=== PATIENT | female | born 1935 | race Caucasian/White ===

== ENCOUNTER → 2016-11-06 | Outpatient (CLI) | payer MEDICARE ==
--- NOTE | 2016-11-06 16:37 | PE ---
Nuclear medicine PET/CT HISTORY: lung carcinoma Patient received 13.7 mCi F-18 FDG intravenously and delayed scanning was performed from the skull ba se to the mid thighs. Localization and attenuation correction CT scan was performed, correlation to p rior chest CT June, prior nuclear medicine PET/CT 02 August 2015 Neck and chest: The spiculated mass seen in the right lower lobe on previous exam is not evident, the re is soft tissue attenuation present in the right lower lobe which measures approximately 6.2 x 3.5 cm similar to findings on chest CT, this may obscure the underlying lesion seen on prior medicine PET /CT however significant hypermetabolic uptake seen on previous exam has diminished. There is a subcentimeter nodule present on axial image 92 measuring only 6 mm in the right upper lobe anteriorly at. This is a new finding. Osseous structures: There is however a focus of hypermetabolic uptake corresponding to a lytic lesion involving the posterior elements of the 11th thoracic vertebral body, the lytic lesion measures 2 cm in greatest dimension and shows associated soft tissue component and has progressed compared to prio r chest CT as described on prior report. Multiple anterior rib fractures are noted on the right with corresponding hypermetabolic uptake present. Some lower anterior rib fractures are also present on th e left with associated hypermetabolic uptake. Abdomen pelvis: No suspicious hypermetabolic uptake. Infrarenal abdominal aortic aneurysm measures 4 cm. No adrenal mass. No retroperitoneal adenopathy. IMPRESSION: Findings compatible with metastatic disease.
== END | disposition home or self-care (01) ==
LOC: RADPETMAIN 10:40
PROVIDERS: ATTEND Radiology Radiation Oncology
DX: C34.31 Malignant neoplasm of lower lobe, right bronchus or lung (principal)
CPT/HCPCS: 78815; A9552

== ENCOUNTER 2017-08-03 13:43 | Day surgery (SDC) | payer MEDICARE ==
[2017-08-01 15:00] VITALS: BMI 34.3
[~2017-08-03 13:43] MED LIST: HYDROmorphone 0.5 MG/0.5 ML SYRINGE IVP PRN; ONDANSETRON 4 MG/2 ML VIAL IVP ONE; ceFAZolin IN SWFI 2 GM/20 ML SYRINGE IVP ONE
[2017-08-03] MEDS: LACTATED RINGERS 1,000 ML IV SCH ×2 (14:20→18:46)
[2017-08-03] MEDS ORDERED: LIDOCAINE 1% 20 ML VIAL (10MG/ML) FOR IV START INTRADERMA ONE (14:21)
[2017-08-03 14:22] LABS: Glucose,Whole Blood 113 mg/dL (75-99)
[2017-08-03] MEDS ORDERED: HYDROCORTISONE SUCCINATE 100 MG/2 ML VIAL IV ONE (15:39)
[2017-08-03] MEDS ORDERED: ONDANSETRON 4 MG/2 ML VIAL IVP PRN (15:58)
[2017-08-03] MEDS ORDERED: diphenhydrAMINE 25 MG CAP PO PRN (15:58)
[2017-08-03] MEDS ORDERED: hydrOXYzine PAMOATE 25 MG CAP PO PRN (15:58)
[2017-08-03] MEDS ORDERED: HYDROmorphone 2 MG/ML 1 ML SYRINGE IVP PRN ×3 (15:58)
[2017-08-03] MEDS ORDERED: HYDROcodone/APAP 5-325MG 1 EACH TAB PO PRN ×2 (15:58)
[2017-08-03] MEDS ORDERED: SENNOSIDES-DOCUSATE SODIUM 1 EACH TAB PO PRN (15:58)
[2017-08-03] MEDS ORDERED: TEMAZEPAM 15 MG CAP PO PRN (15:58)
[2017-08-03] MEDS ORDERED: METOCLOPRAMIDE 5 MG/ML 2 ML VIAL IVP PRN (15:58)
[2017-08-03] MEDS ORDERED: PROCHLORPERAZINE SUPPOSITORY 25 MG SUPP RECTAL PRN (15:58)
[2017-08-03] MEDS ORDERED: ceFAZolin IN SWFI 2 GM/20 ML SYRINGE IVP SCH (16:00)
[2017-08-03] MEDS ORDERED: MIDAZOLAM 2 MG/2 ML VIAL ONE (16:18)
[2017-08-03] MEDS ORDERED: fentaNYL (PF) 50 MCG/ML 2 ML AMP ONE (16:18)
[2017-08-03] MEDS ORDERED: SILVER sulfADIAZINE Cream 400 GM 1 APPLIC APPLIC TOPICAL ONE (16:55)
--- NOTE | 2017-08-03 17:33 | P.OP ---
Date of Procedure: 08/03/17 Preoperative Diagnosis: 1. Trimalleolar ankle fracture 2. Type 2 diabetes 3. COPD 4. Former smoker 5. Coronary artery disease Postoperative Diagnosis: Same and superficial wound breakdown and ulceration over the lateral malleolus Procedure(s) Performed: 1. Closed reduction left trimalleolar ankle fracture 2. Application of short leg splint by physician Anesthesia: spinal Surgeon: Otto Lamas Occupational Medicine Specialist #1: Fabio Latif Pathology: none sent Condition: stable Disposition: PACU Indications for Procedure: The patient is an 81-year-old female with multiple medical problems who sustained a fall resulting in a left trimalleolar ankle fracture. The patient was initially seen in the hospital as a consultation. She had a splint applied to the right ankle. She was seen in the office last week for soft tissue inspection. At that time there was no wound breakdown, there was wrinkling of the skin and the soft tissue envelope appeared amenable to surgery. The potential risks and complications of surgery and the patient and her family decided to go forward with open reduction and internal fixation of her ankle fracture. Operative Findings: After the patient had been brought back to the operating room and a spinal anesthetic was placed the splint was taken down. There was a superficial wound directly over the lateral malleolus with superficial necrosis, swelling, and maceration of the surrounding skin. His and tenuous soft tissue envelope I canceled the procedure due to the significantly increased risk of wound complications. Description of Procedure: She was identified in preoperative holding and the correct right ankle was marked with my initials. I reviewed the consent form with the patient and her family. All of their questions were answered. The patient was then brought back to the operating room. She was positioned on the OR table and a spinal anesthetic was administered. After the spinal anesthetic and taken effect the short leg splint on her right ankle was taken down. On inspection of the skin there is diffuse swelling, maceration, and ulceration over the lateral malleolus. The soft tissue envelope was not appropriate for surgery. The surgical procedure was canceled. A sterile dressing consisting of Silvadene cream and Adaptic was placed over the wound. A closed reduction was performed using the Samuel maneuver. Reduction of the ankle was verified with fluoroscopy. A padded bulky Conway splint was placed with a varus mold. After the splint had set I verified that the talus was still reduced within the ankle mortise. The patient was then brought from the operating room to PACU having tolerated the procedure well. Plan: Unfortunately the patient already had a spinal anesthetic administered before the soft tissue envelope was deemed unsafe for surgery. She is going to be admitted overnight. She will [facility]. She will follow up with me in the office in one week for wound check. I do lengthy discussion with the patient's family about her tenuous soft tissue envelope. Due to her multiple medical problems and poor soft tissue envelope I recommended proceeding with a TTC fusion nail to address her unstable ankle fracture once her soft tissue envelope is improved. The patient's family understands her increased risk for developing wound complication, infection, and ultimately the possibility of an amputation due to the severity of her fracture and her multiple medical problems.
[2017-08-03 17:37] LABS: Glucose,Whole Blood 141 mg/dL (75-99)
[2017-08-03] MEDS ORDERED: hydrALAZINE HCL 20 MG/ML 1 ML VIAL IVP PRN (18:44)
[2017-08-03] MEDS ORDERED: NALOXONE 0.4 MG/ML 1 ML VIAL IV PRN (19:09)
[2017-08-03 19:31] LABS: Basophils % (A) 0 %; Eosinophils # (A) 0.1 k/uL (0-0.7); Eosinophils % (A) 2 %; HCT 35.4 % (34.0-46.0); HGB 11.4 gm/dL (11.4-16.0); Hypochromasia Slight; Lymphocytes # (A) 1.2 k/uL (1.0-4.8); Lymphocytes % (A) 24 %; MCH 30.3 pg (25.0-35.0); MCHC 32.2 g/dL (31.0-37.0); MCV 94.1 fL (80.0-100.0); Mean Platelet Volume 10.1; Monocytes # (A) 0.1 k/uL (0-1.0); Monocytes % (A) 2 %; Neutrophils # (A) 3.5 k/uL (1.3-7.7); Neutrophils % (A) 71 %; RBC 3.77 m/uL (3.80-5.40)
[2017-08-03 20:35] LABS: Anisocytosis (M) Present; Hypochromasia (M) Present; Platelet Count 84 k/uL (150-450)
[2017-08-03] MEDS: SULFAMETHOX-TMP 800-160MG 1 EACH TAB PO SCH (20:54)
[2017-08-03] MEDS: ASPIRIN 325 MG TAB PO SCH (20:54)
[2017-08-03 20:56] LABS: Glucose,Whole Blood 165 mg/dL (75-99)
[2017-08-03] MEDS: INSULIN DETEMIR 100 UNIT/ML 10 ML VIAL SQ SCH (21:37)
[2017-08-04] MEDS: LACTATED RINGERS 1,000 ML IV SCH ×3 (05:04→07:57)
[2017-08-04 05:16] LABS: Hemoglobin A1C 5.4 % (4.0-6.0)
[2017-08-04 06:56] LABS: Glucose,Whole Blood 82 mg/dL (75-99)
--- NOTE | 2017-08-04 06:56 | FL ---
EXAMINATION TYPE: FL guidance operating room, XR ankle limited RT DATE OF EXAM: 08/03/2017 CLINICAL HISTORY: Ankle fracture TECHNIQUE: Fluoroscopy. Limited intraoperative views right ankle. COMPARISON: Right ankle x-ray and CT right ankle July 14, 2017. FINDINGS: Fluoroscopic guidance was provided during closed reduction procedure performed by Dr. Carolina ruby. A total of 4 seconds seconds of fluoroscopic time was utilized during the procedure and 2 spot intraoperative images are acquired. Intraoperative images acquired redemonstrated fractures through the medial and lateral malleoli with slight widening of medial ankle mortise. Alignment is fairly stable from prior study. IMPRESSION: As Above.
[2017-08-04 07:38] VITALS: BP 126/58; PULSE 67; RESP 18; TEMP 97.6
[2017-08-04] MEDS: ASPIRIN 325 MG TAB PO SCH (07:58)
[2017-08-04] MEDS: SULFAMETHOX-TMP 800-160MG 1 EACH TAB PO SCH (07:58)
[2017-08-04] MEDS: INSULIN DETEMIR 100 UNIT/ML 10 ML VIAL SQ SCH (07:58)
--- NOTE | 2017-08-04 08:21 | P.PN ---
Progress Note - Text Date: 08/04/2017 Time: 0717 The patient is status post, closed reduction right ankle Vital signs stable VAS:[0-10] Patient has no complaints of pain. The patient incurred some minimal itching yesterday, this itching is now subsiding. Pain meds to be managed by service.
[2017-08-04] MEDS ORDERED: ENOXAPARIN 30 MG/0.3 ML SYRINGE SQ SCH (09:00)
--- NOTE | 2017-08-04 10:01 | P.DS ---
Providers Expected date of discharge: 08/04/17 Attending physician: Otto Lamas Consults: 08/03/17 15:58 Consult Physician Routine Consulting Provider: Suzanne Craven Consult Reason/Comments: post op medical management Do you want consulting provider notified?: Yes 08/03/17 18:37 Consult Physician Routine Consulting Provider: Ok March Consult Reason/Comments: medical managment Do you want consulting provider notified?: Yes Primary care physician: Kady Hudson - Discharge Diagnosis(es) (1) Trimalleolar fracture of ankle, closed Patient was admitted to the OR on 08/03/17 with plan to undergo an ORIF of her right trimalleolar ankle fracture. The surgery was canceled after determining that the would be area of the incision had skin breakdown and would be inappropriate for proceeding. The wound was dressed with Silvadene, a bulky cotton dressing and an appropriate fitting, well padded splint was applied. She had received a spinal block and was admitted overnight for observation. Her hospital course has remained without complication. On day of discharge he is afebrile, vital signs stable, labs within acceptable ranges, tolerating by mouth meds and diet, voiding without difficulty, positive flatus, denies abdominal pain or calf pain, pain is controlled on oral pain medication and has no new complaints. Wound is benign, neurovascular status is intact, calf is soft and nontender, abdomen soft and nontender. Review of systems is negative for numbness, tingling, fever, chills, chest pain, shortness breath, nausea, vomiting, dizziness, headaches, slurred speech or other. Current Visit: No Status: Acute Priority: Medium Patient Condition at Discharge: Fair Plan - Discharge Summary New Discharge Prescriptions: New Aspirin 325 mg PO DAILY #30 tab No Action Vits A,C,E/Lutein/Minerals [Ocuvite with Lutein Tablet] 1 tab PO DAILY Hydrocortisone [Cortef] 10 mg PO DAILY Sertraline [Zoloft] 100 mg PO DAILY lamoTRIgine [LaMICtal] 150 mg PO HS Omeprazole [PriLOSEC] 20 mg PO DAILY Latanoprost Ophth [Xalatan 0.005%] 1 drops BOTH EYES HS Ergocalciferol [Vitamin D2 (DRISDOL)] 50,000 unit PO MO Ferrous Sulfate [Iron (65 MG Elemental)] 325 mg PO BID INSULIN LISPRO (HumaLOG) [humaLOG] See Protocol SQ ACHS Levothyroxine Sodium [Synthroid] 150 mcg PO DAILY Calcium Carbonate [Calcium] 600 mg PO HS Furosemide [Lasix] 40 mg PO DAILY tab Lisinopril [Prinivil] 10 mg PO DAILY #30 tab Insulin Glargine [Lantus] 8 unit SQ BID #0 INSULIN LISPRO (HumaLOG) [humaLOG] 4 units SQ ACHS #0 rOPINIRole HCL [Requip] 1 mg PO HS #0 HYDROcodone/APAP 10-325MG [[place] 10-325] 1 tab PO Q6H PRN #60 tab PRN Reason: Pain Ipratropium-Albuterol Nebulize [Duoneb 0.5 mg-3 mg/3 ml Soln] 3 ml INHALATION QID PRN PRN Reason: Wheezing Metoprolol Tartrate [Lopressor] 25 mg PO DAILY Discharge Medication List Hydrocortisone [Cortef] 10 mg PO DAILY 04/14/16 [History] Vits A,C,E/Lutein/Minerals [Ocuvite with Lutein Tablet] 1 tab PO DAILY 04/14/16 [History] Ergocalciferol [Vitamin D2 (DRISDOL)] 50,000 unit PO MO 06/28/16 [History] Latanoprost Ophth [Xalatan 0.005%] 1 drops BOTH EYES HS 06/28/16 [History] Omeprazole [PriLOSEC] 20 mg PO DAILY 06/28/16 [History] Sertraline [Zoloft] 100 mg PO DAILY 06/28/16 [History] lamoTRIgine [LaMICtal] 150 mg PO HS 06/28/16 [History] Calcium Carbonate [Calcium] 600 mg PO HS 07/14/17 [History] Ferrous Sulfate [Iron (65 MG Elemental)] 325 mg PO BID 07/14/17 [History] INSULIN LISPRO (HumaLOG) [humaLOG] See Protocol SQ ACHS 07/14/17 [History] Levothyroxine Sodium [Synthroid] 150 mcg PO DAILY 07/14/17 [History] Furosemide [Lasix] 40 mg PO DAILY tab 07/19/17 [Rx] HYDROcodone/APAP 10-325MG [[place] 10-325] 1 tab PO Q6H PRN #60 tab 07/19/17 [Rx] INSULIN LISPRO (HumaLOG) [humaLOG] 4 units SQ ACHS #0 07/19/17 [Rx] Insulin Glargine [Lantus] 8 unit SQ BID #0 07/19/17 [Rx] Lisinopril [Prinivil] 10 mg PO DAILY #30 tab 07/19/17 [Rx] rOPINIRole HCL [Requip] 1 mg PO HS #0 07/19/17 [Rx] Ipratropium-Albuterol Nebulize [Duoneb 0.5 mg-3 mg/3 ml Soln] 3 ml INHALATION QID PRN 08/01/17 [History] Metoprolol Tartrate [Lopressor] 25 mg PO DAILY 08/01/17 [History] Aspirin 325 mg PO DAILY #30 tab 08/04/17 [Rx] Follow up Appointment(s)/Referral(s): Otto Lamas MD [Medical Doctor] - 1 Week Activity/Diet/Wound Care/Special Instructions: Nonweightbearing Elevate lower extremity Take meds as directed Follow-up with Dr. Lamas in office Maintain splint, keep clean and dry Discharge Disposition: HOME SELF-CARE
[2017-08-04 11:59] LABS: Glucose,Whole Blood 68 mg/dL (75-99)
--- NOTE | 2017-08-04 12:03 | P.CONS ---
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 Smith. In June patient has sustained a fall resulting in a right Trimalleolar ankle fracture. She was initially hospitalized and had a splint applied to the right ankle. She was seen by orthopedics they've recommended that she comes in to the hospital for open reduction and internal fixation of the ankle. Unfortunately patient was taken to the OR however, there was significant skin breakdown to the right ankle and they were unable to proceed with an open reduction of the ankle. She had received spinal block and was put in place in observation through the night. Orthopedics are planning to discharge her today and will follow-up with patient in 1 week. Patient is sitting at bedside chair. She ate a liquid breakfast this morning. She had been nothing by mouth throughout the day yesterday. She had a low blood sugar of 82 this morning. A1c was 5.4. Per family and patient they had been decreasing her Levemir and NovoLog at the [facility]. At this time is planning to send patient home with home care. Patient denies any chest pain or shortness breath. Denies any nausea or vomiting. Denies any bowel movement changes or urinary symptoms. Review of Systems Please refer to HPI otherwise unremarkable Past Medical History Past Medical History: Cancer, Heart Failure, COPD, Diabetes Mellitus, GERD/ Reflux, Hypertension, Pneumonia, Thyroid Disorder Additional Past Medical History / Comment(s): lung cancer x 2-tx with radiation , has spint on rt ankle-non wt bearing, Oxygen at 2 Liters PRN., Hiatal Hernia, Back Pain, Bruises easily(mult bruises currently) , Anemia- hx of blood transfusions (last April 2016), Abd Aneurysm. diarrhea, renal gland insuffeciency, neuropathy, vit D deficiency, restless leg syndrome, fx ribs from September 2016. on thickened puree diet due to neck/throat issues from neck surgery 07/07/17. "not supposed to move neck much" per jennifer History of Any Multi-Drug Resistant Organisms: None Reported Past Surgical History: Section, Orthopedic Surgery Additional Past Surgical History / Comment(s): esme cataracts., left shoulder-pin , neck surgery with "basket" 07/07/17(has brace on neck) Past Anesthesia/Blood Transfusion Reactions: Previous Problems w/ Anesthesia, Blood Transfusion Reaction Additional Past Anesthesia/Blood Transfusion Reaction / Comm: neck surgery 07/07 at [facility]-diff swallowing since'"swollen throat", has neck brace on and "not supposed to move her neck much" per daughter. Hx of blood transfusions - Daughter states that Keerthi has an Antibody and makes it difficult to match., last transfusion Apr 2016 she broke out in a rash a couple days later, Smoking Status: Former smoker - Past Family History Sister(s) Family Medical History: Cancer, Deep Vein Thrombosis (DVT) Additional Family Medical History / Comment(s): SISTER #1 BREAST CANCER. SISTER #2 FEMALE CANCER Daughter(s) Family Medical History: Cancer Additional Family Medical History / Comment(s): . Medications and Allergies Home Medications Medication Instructions Recorded Confirmed Type Hydrocortisone [Cortef] 10 mg PO DAILY 04/14/16 08/03/17 History Vits A,C,E/Lutein/Minerals 1 tab PO DAILY 04/14/16 08/03/17 History [Ocuvite with Lutein Tablet] Ergocalciferol [Vitamin D2 50,000 unit PO MO 06/28/16 08/03/17 History (DRISDOL)] Latanoprost Ophth [Xalatan 0.005%] 1 drops BOTH EYES HS 06/28/16 08/03/17 History Omeprazole [PriLOSEC] 20 mg PO DAILY 06/28/16 08/03/17 History Sertraline [Zoloft] 100 mg PO DAILY 06/28/16 08/03/17 History lamoTRIgine [LaMICtal] 150 mg PO HS 06/28/16 08/03/17 History Calcium Carbonate [Calcium] 600 mg PO HS 07/14/17 08/03/17 History Ferrous Sulfate [Iron (65 MG 325 mg PO BID 07/14/17 08/03/17 History Elemental)] INSULIN LISPRO (HumaLOG) [humaLOG] See Protocol SQ ACHS 07/14/17 08/03/17 History Levothyroxine Sodium [Synthroid] 150 mcg PO DAILY 07/14/17 08/03/17 History Furosemide [Lasix] 40 mg PO DAILY tab 07/19/17 08/03/17 Rx HYDROcodone/APAP 10-325MG [[place] 1 tab PO Q6H PRN #60 tab 07/19/17 08/03/17 Rx 10-325] INSULIN LISPRO (HumaLOG) [humaLOG] 4 units SQ ACHS #0 07/19/17 08/03/17 Rx Insulin Glargine [Lantus] 8 unit SQ BID #0 07/19/17 08/03/17 Rx Lisinopril [Prinivil] 10 mg PO DAILY #30 tab 07/19/17 08/03/17 Rx rOPINIRole HCL [Requip] 1 mg PO HS #0 07/19/17 08/03/17 Rx Ipratropium-Albuterol Nebulize 3 ml INHALATION QID PRN 08/01/17 08/03/17 History [Duoneb 0.5 mg-3 mg/3 ml Soln] Metoprolol Tartrate [Lopressor] 25 mg PO DAILY 08/01/17 08/03/17 History Aspirin 325 mg PO DAILY #30 tab 08/04/17 Rx Allergies Allergy/AdvReac Type Severity Reaction Status Date / Time adhesive Allergy peels skin Verified 08/01/17 15:00 off Physical Exam Vitals: Vital Signs Temp Pulse Resp BP Pulse Ox 08/04/17 10:00 18 92 L 08/04/17 07:00 97.6 F 67 18 126/58 90 L 08/04/17 02:09 17 08/03/17 23:00 97.2 F L 64 17 107/50 94 L 08/03/17 22:15 97.2 F L 66 18 123/58 96 08/03/17 21:14 97.1 F L 59 L 18 118/56 96 08/03/17 20:44 97.0 F L 55 L 18 124/56 97 08/03/17 20:14 97.0 F L 55 L 18 127/56 98 08/03/17 20:09 18 08/03/17 19:53 96.9 F L 54 L 18 136/59 100 08/03/17 19:26 96.9 F L 54 L 18 133/60 100 08/03/17 19:09 17 08/03/17 18:57 96.1 F L 53 L 18 123/57 99 08/03/17 18:30 57 L 16 140/58 100 08/03/17 17:45 53 L 16 122/60 100 08/03/17 17:30 54 L 16 162/69 100 08/03/17 17:14 96.8 F L 54 L 14 102/53 94 L 08/03/17 14:23 97.8 F 60 18 137/61 93 L Intake and Output 08/03/17 08/04/17 08/04/17 22:59 06:59 14:59 Intake Total 700 Balance 700 Intake: IV 700 Other: Voiding Method Bedpan # Voids 1 2 Head normocephalic Neck c-collar in place Lungs clear to auscultation bilaterally no wheezing or crackles Heart regular rate and rhythm S1-S2, no rub or gallop Abdomen is soft nontender nondistended positive bowel sounds no hepatosplenomegaly Extremities right leg is in splint and Abram wrap Neuro alert and orientated to 3 Results CBC & Chem 7: 08/03/17 19:13 Labs: Abnormal Lab Results - Last 24 Hours (Table) 08/03/17 08/03/17 08/03/17 Range/Units 14:17 17:35 19:13 RBC 3.77 L (3.80-5.40) m/uL RDW 16.0 H (11.5-15.5) % Plt Count 84 L (150-450) k/uL POC Glucose (mg/dL) 113 H 141 H (75-99) mg/dL 08/03/17 Range/Units 20:43 RBC (3.80-5.40) m/uL RDW (11.5-15.5) % Plt Count (150-450) k/uL POC Glucose (mg/dL) 165 H (75-99) mg/dL Assessment and Plan Assessment: 1. Right ankle fracture. Patient initially had surgery scheduled yesterday for an ORIF of the right trimalleolar ankle fracture. Surgery was canceled because patient had a wound on the right leg with skin breakdown. Silvadene was placed and patient was placed in a splint and Abram wrap. Orthopedics have cleared her for discharge and she'll follow-up with him in the office. 2. Type 2 diabetes mellitus: A1c 5.4 with episodes of hypoglycemia. Patient has had intentional weight loss and his been monitoring her diet. They have been tapering down her Levemir. At this time we will discontinue Levemir and continue sliding scale coverage at home. We'll have patient's blood sugars checked before each meal and record. We'll have patient follow-up with his PCP in 1 week 3. Essential hypertension 4. Hypothyroidism 5. Stage IV lung cancer status post radiation treatment [address] Smith 6. 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 Followed by Dr. Smith. Patient is on iron supplement. She's required IV transfusions in the past. Hemoglobin 11.4 7. 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 Follow up Dr. Smith 8. Chronic kidney disease stage IIIB 9. History of cervical spine fusion. Continue c-collar Thank you for this consultation. Patient is medically stable for discharge. We 'll have her follow-up with her PCP in 1 week Time with Patient: Greater than 30 (Greater than 50% of the total time spent in counseling and coordination of care.I performed an examination of the patient and discussed their management with the physician Fisher Trawl Net. I have reviewed the Physician Fisher Trawl Net's notes and agree with the documented findings and plan of care)
[2017-08-04 12:25] LABS: Glucose,Whole Blood 87 mg/dL (75-99)
== END 2017-08-04 14:51 | disposition home health service (06) ==
LOC: OR 13:43 → EDSTATUS 15:40 → 4MS4W 17:10 → OR 08-04 14:51
PROVIDERS: ATTEND Orthopaedic Surgery
DX: S82.851A Displaced trimalleolar fracture of right lower leg, initial encounter for closed fracture (principal); W18.30XA Fall on same level, unspecified, initial encounter; E11.622 Type 2 diabetes mellitus with other skin ulcer; L97.311 Non-pressure chronic ulcer of right ankle limited to breakdown of skin; Z79.4 Long term (current) use of insulin; I13.0 Hypertensive heart and chronic kidney disease with heart failure and stage 1 through stage 4 chronic kidney disease, or unspecified chronic kidney disease; D63.1 Anemia in chronic kidney disease; Z87.891 Personal history of nicotine dependence; I25.10 Atherosclerotic heart disease of native coronary artery without angina pectoris; E11.40 Type 2 diabetes mellitus with diabetic neuropathy, unspecified; E11.22 Type 2 diabetes mellitus with diabetic chronic kidney disease; N18.9 Chronic kidney disease, unspecified; I50.9 Heart failure, unspecified; J44.9 Chronic obstructive pulmonary disease, unspecified; C34.90 Malignant neoplasm of unspecified part of unspecified bronchus or lung; Z92.3 Personal history of irradiation; E07.9 Disorder of thyroid, unspecified; E27.40 Unspecified adrenocortical insufficiency; K21.9 Gastro-esophageal reflux disease without esophagitis; H40.9 Unspecified glaucoma; Z79.891 Long term (current) use of opiate analgesic; Z79.52 Long term (current) use of systemic steroids; Z79.899 Other long term (current) drug therapy; Z88.6 Allergy status to analgesic agent; Z91.09 Other allergy status, other than to drugs and biological substances
CPT/HCPCS: 27818; 97162; 85025; 83036; 73600; J2250; J1720; J2405; J3010

== ENCOUNTER 2017-08-11 15:14 | Inpatient (IN) | payer MEDICARE ==
[2017-08-11] MEDS ORDERED: NA PHOS,M-B/NA PHOS,DI-BA 133 ML ENEMA RECTAL PRN (16:01)
[2017-08-11] MEDS ORDERED: NALOXONE 0.4 MG/ML 1 ML VIAL IV PRN (16:01)
[2017-08-11] MEDS ORDERED: MAGNESIUM HYDROXIDE 2,400 MG/10 ML CUP PO PRN (16:01)
[2017-08-11] MEDS ORDERED: HYDROcodone/APAP 5-325MG 1 EACH TAB PO PRN (16:01)
[2017-08-11] MEDS ORDERED: ONDANSETRON 4 MG/2 ML VIAL IVP PRN (16:01)
[2017-08-11 16:52] LABS: Anisocytosis Slight; Basophils % (A) 1 %; Eosinophils # (A) 0.2 k/uL (0-0.7); Eosinophils % (A) 4 %; HCT 33.7 % (34.0-46.0); HGB 10.6 gm/dL (11.4-16.0); Hypochromasia Slight; Lymphocytes # (A) 1.8 k/uL (1.0-4.8); Lymphocytes % (A) 32 %; MCH 30.5 pg (25.0-35.0); MCHC 31.4 g/dL (31.0-37.0); MCV 97.1 fL (80.0-100.0); Macrocytosis Slight; Mean Platelet Volume 10.2; Monocytes # (A) 0.3 k/uL (0-1.0); Monocytes % (A) 6 %; Neutrophils # (A) 3.1 k/uL (1.3-7.7); Neutrophils % (A) 56 %; Platelet Count 120 k/uL (150-450); RBC 3.47 m/uL (3.80-5.40); WBC 5.6 k/uL (3.8-10.6)
[2017-08-11 16:58] LABS: INR 1.1 (<1.2)
[2017-08-11 17:04] LABS: Albumin 3.4 g/dL (3.5-5.0); Calcium 9.1 mg/dL (8.4-10.2); Potassium 4.3 mmol/L (3.5-5.1); Total Bilirubin 0.4 mg/dL (0.2-1.3); Total Protein 6.9 g/dL (6.3-8.2)
[2017-08-11 18:06] LABS: Glucose,Whole Blood 137 mg/dL (75-99)
[2017-08-11] MEDS: SODIUM CHLORIDE 0.9% 1,000 ML IV SCH (18:28)
[2017-08-11 20:22] LABS: Glucose,Whole Blood 157 mg/dL (75-99)
[2017-08-11 21:16] LABS: Anisocytosis Slight; Basophils % (A) 1 %; Eosinophils # (A) 0.2 k/uL (0-0.7); Eosinophils % (A) 5 %; HCT 30.1 % (34.0-46.0); HGB 9.4 gm/dL (11.4-16.0); Hypochromasia Slight; Lymphocytes # (A) 1.6 k/uL (1.0-4.8); Lymphocytes % (A) 33 %; MCH 30.2 pg (25.0-35.0); MCHC 31.2 g/dL (31.0-37.0); MCV 96.8 fL (80.0-100.0); Macrocytosis Slight; Mean Platelet Volume 10.2; Monocytes # (A) 0.3 k/uL (0-1.0); Monocytes % (A) 6 %; Neutrophils # (A) 2.5 k/uL (1.3-7.7); Neutrophils % (A) 53 %; Platelet Count 106 k/uL (150-450); RBC 3.11 m/uL (3.80-5.40); RDW 17.1 % (11.5-15.5); WBC 4.7 k/uL (3.8-10.6)
[2017-08-11] MEDS: FERROUS SULFATE 325 MG TAB PO SCH (21:19)
[2017-08-11] MEDS: LATANOPROST 0.005% OPHTH DROPS 2.5 ML BTL BOTH EYES SCH (21:20)
[2017-08-11] MEDS: lamoTRIgine 100 MG TAB PO SCH (21:20)
[2017-08-11] MEDS: CALCIUM CARBONATE 500 MG CHEWABLE PO SCH (21:20)
[2017-08-11 21:31] LABS: Calcium 8.7 mg/dL (8.4-10.2); Potassium 4.1 mmol/L (3.5-5.1)
[2017-08-11] MEDS ORDERED: MORPHINE SULFATE 2 MG/ML SYRINGE IV PRN (22:16)
[2017-08-11] MEDS ORDERED: HYDROmorphone 0.5 MG/0.5 ML SYRINGE IVP PRN (22:16)
[2017-08-12] MEDS: LEVOTHYROXINE 75 MCG TAB PO SCH (05:34)
[2017-08-12] MEDS: LACTATED RINGERS 1,000 ML IV SCH ×2 (05:34→21:15)
[2017-08-12 07:09] LABS: Glucose,Whole Blood 126 mg/dL (75-99)
[2017-08-12] MEDS: INSULIN ASPART 100 UNIT/ML 1 ML 10 ML VIAL SQ SCH ×4 (07:17→21:09)
[2017-08-12] MEDS: PANTOPRAZOLE 40 MG TABLET PO SCH (07:18)
[2017-08-12] MEDS: FERROUS SULFATE 325 MG TAB PO SCH ×2 (07:18→20:44)
[2017-08-12] MEDS: HYDROCORTISONE 10 MG TAB PO SCH (07:18)
[2017-08-12] MEDS: VIT A,C & E-LUTEIN-MINERALS 1 EACH TAB PO SCH (07:20)
[2017-08-12] MEDS: LISINOPRIL 10 MG TAB PO SCH (07:20)
[2017-08-12] MEDS: METOPROLOL TARTRATE 25 MG TAB PO SCH (07:20)
[2017-08-12] MEDS: FUROSEMIDE 40 MG TAB PO SCH (07:20)
[2017-08-12] MEDS: SERTRALINE 100 MG TAB PO SCH (07:20)
--- NOTE | 2017-08-12 08:26 | P.HPOR ---
History of Present Illness H&P Date: 08/11/17 Chief Complaint: Right ankle fracture This is an 81-year-old female whom we have been following in our office for a trimalleolar fracture dislocation of the right ankle. The patient sustained injury on 07/14/2017 when she fell in her home. She had recent cervical fusion in early June is in a hard cervical collar. She presented to the ER on with a fracture dislocation of the right ankle. Closed reduction was performed. She had follow-up in our office and skin was found to be intact at that time. She was scheduled for open reduction internal fixation of the right ankle. She was taken to the operating room on 08/03/2017 for surgery. However , her skin was no longer intact. There was skin maceration noted. It was decided at that time to cancel surgery. She is seen for follow-up yesterday. Her skin conditions have improved. She is scheduled for surgery on 08/12/2017. She is admitted for presurgical clearance. Past Medical History Past Medical History: Cancer, Heart Failure, COPD, Diabetes Mellitus, GERD/ Reflux, Hypertension, Pneumonia, Thyroid Disorder Additional Past Medical History / Comment(s): lung cancer x 2-tx with radiation , has spint on rt ankle-non wt bearing, Oxygen at 2 Liters PRN., Hiatal Hernia, Back Pain, Bruises easily(mult bruises currently) , Anemia- hx of blood transfusions (last April 2016), Abd Aneurysm. diarrhea, renal gland insuffeciency, neuropathy, vit D deficiency, restless leg syndrome, fx ribs from September 2016. on NECTAR THICK LIQUIDS, GROUND DIET, AND CRUSH THE CRUSABLE MEDS AND PUT IN APPLESAUCE- due to neck/throat issues from neck surgery . "not supposed to move neck much" per duaghter/WEARING NECK BRACE, HAS URGENCY AND OCC INCONT OF URINE-WERARS BRIEF. History of Any Multi-Drug Resistant Organisms: None Reported Past Surgical History: Section, Orthopedic Surgery Additional Past Surgical History / Comment(s): esme cataracts., left shoulder-pin , neck surgery with "basket" 07/07/17(has brace on neck) Past Anesthesia/Blood Transfusion Reactions: Previous Problems w/ Anesthesia, Blood Transfusion Reaction Additional Past Anesthesia/Blood Transfusion Reaction / Comment(s): neck surgery 07/07/17 at [facility]-diff swallowing since'"swollen throat", has neck brace on and "not supposed to move her neck much" per daughter. Hx of blood transfusions -Daughter states that Keerthi has an Antibody and makes it difficult to match., last transfusion Apr 2016 she broke out in a rash a couple days later , Past Psychological History: Anxiety, Depression Additional Psychological History / Comment(s): dementia Smoking Status: Former smoker Past Alcohol Use History: None Reported Additional Past Alcohol Use History / Comment(s): Smoked 3 ppd, Quit smoking 1972. Smoked for 30 yrs. Past Drug Use History: None Reported - Past Family History Sister(s) Family Medical History: Cancer, Deep Vein Thrombosis (DVT) Additional Family Medical History / Comment(s): SISTER #1 BREAST CANCER. SISTER #2 FEMALE CANCER Daughter(s) Family Medical History: Cancer Additional Family Medical History / Comment(s): . Medications and Allergies Home Medications Medication Instructions Recorded Confirmed Type Hydrocortisone [Cortef] 10 mg PO DAILY 04/14/16 08/11/17 History Vits A,C,E/Lutein/Minerals 1 tab PO DAILY 04/14/16 08/11/17 History [Ocuvite with Lutein Tablet] Ergocalciferol [Vitamin D2 50,000 unit PO MO 06/28/16 08/11/17 History (ISDOL)] Latanoprost Ophth [Xalatan 0.005%] 1 drops BOTH EYES HS 06/28/16 08/11/17 History Omeprazole [PriLOSEC] 20 mg PO DAILY 06/28/16 08/11/17 History Sertraline [Zoloft] 100 mg PO DAILY 06/28/16 08/11/17 History lamoTRIgine [LaMICtal] 150 mg PO HS 06/28/16 08/11/17 History Calcium Carbonate [Calcium] 600 mg PO HS 07/14/17 08/11/17 History Ferrous Sulfate [Iron (65 MG 325 mg PO BID 07/14/17 08/11/17 History Elemental)] INSULIN LISPRO (HumaLOG) [humaLOG] See Protocol SQ ACHS 07/14/17 08/11/17 History Levothyroxine Sodium [Synthroid] 150 mcg PO DAILY 07/14/17 08/11/17 History Furosemide [Lasix] 40 mg PO DAILY tab 07/19/17 08/11/17 Rx HYDROcodone/APAP 10-325MG [[place] 1 tab PO Q6H PRN #60 tab 07/19/17 08/11/17 Rx 10-325] Lisinopril [Prinivil] 10 mg PO DAILY #30 tab 07/19/17 08/11/17 Rx rOPINIRole HCL [Requip] 1 mg PO HS #0 07/19/17 08/11/17 Rx Ipratropium-Albuterol Nebulize 3 ml INHALATION RT-QID PRN 08/01/17 08/11/17 History [Duoneb 0.5 mg-3 mg/3 ml Soln] Metoprolol Tartrate [Lopressor] 25 mg PO DAILY 08/01/17 08/11/17 History Aspirin 325 mg PO DAILY #30 tab 08/04/17 08/11/17 Rx Cephalexin [Keflex] 500 mg PO BID #14 capsule 08/04/17 08/11/17 Rx Allergies Allergy/AdvReac Type Severity Reaction Status Date / Time adhesive Allergy peels skin Verified 08/11/17 16:52 off Physical Examination This is an 81-year-old female in no acute distress. She is alert and oriented. She has a poor historian. Exam of the right lower extremity reveals a splint intact. He has normal toe motion without difficulty or pain. Capillary refill is less than 3 seconds to the toes. Skin was evaluated by Dr. Lamas and is intact. Neurovascular status to the lower extremity is intact. Results X-rays of the right ankle reveal a trimalleolar fracture which has been reduced. - Labs Labs: Abnormal Lab Results - Last 24 Hours (Table) 08/11/17 08/11/17 08/11/17 Range/Units 16:38 16:38 17:52 RBC 3.47 L (3.80-5.40) m/uL Hgb 10.6 L (11.4-16.0) gm/dL Hct 33.7 L (34.0-46.0) % RDW 17.0 H (11.5-15.5) % Plt Count 120 L (150-450) k/uL BUN 30 H (7-17) mg/dL Creatinine 1.20 H (0.52-1.04) mg/dL Glucose 167 H (74-99) mg/dL POC Glucose (mg/dL) 137 H (75-99) mg/dL Alkaline Phosphatase 131 H (38-126) U/L Albumin 3.4 L (3.5-5.0) g/dL 08/11/17 08/11/17 08/11/17 Range/Units 20:12 21:05 21:05 RBC 3.11 L (3.80-5.40) m/uL Hgb 9.4 L (11.4-16.0) gm/dL Hct 30.1 L (34.0-46.0) % RDW 17.1 H (11.5-15.5) % Plt Count 106 L (150-450) k/uL BUN 29 H (7-17) mg/dL Creatinine 1.20 H (0.52-1.04) mg/dL Glucose 141 H (74-99) mg/dL POC Glucose (mg/dL) 157 H (75-99) mg/dL Alkaline Phosphatase (38-126) U/L Albumin (3.5-5.0) g/dL 08/12/17 Range/Units 06:56 RBC (3.80-5.40) m/uL Hgb (11.4-16.0) gm/dL Hct (34.0-46.0) % RDW (11.5-15.5) % Plt Count (150-450) k/uL BUN (7-17) mg/dL Creatinine (0.52-1.04) mg/dL Glucose (74-99) mg/dL POC Glucose (mg/dL) 126 H (75-99) mg/dL Alkaline Phosphatase (38-126) U/L Albumin (3.5-5.0) g/dL H & H 08/11/17 08/11/17 Range/Units 16:38 21:05 Hgb 10.6 L 9.4 L (11.4-16.0) gm/dL Hct 33.7 L 30.1 L (34.0-46.0) % Coagulation 08/11/17 Range/Units 16:38 INR 1.1 (<1.2) Result Diagrams: 08/11/17 21:05 08/11/17 21:05 Assessment and Plan (1) Fall Current Visit: No Status: Acute Code(s): W19.XXXA - UNSPECIFIED FALL, INITIAL ENCOUNTER SNOMED Code(s): 3840721 (2) Trimalleolar fracture of ankle, closed Current Visit: No Status: Acute Priority: Medium Code(s): S82.853A - DISPLACED TRIMALLEOLAR FRACTURE OF UNSP LOWER LEG, INIT SNOMED Code(s): 6112721 Plan: The clinical and x-ray findings are discussed the patient. She is admitted for surgical intervention. She may potentially need inpatient rehab postoperatively.
--- NOTE | 2017-08-12 09:12 | P.CONS ---
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 Smith. In June patient had sustained a fall resulting in a right trimalleolar ankle fracture. She was initially hospitalized and had a splint applied to that right ankle. On August 04 she again presented to the OR to have an ORIF completed on that right ankle. However she was found have significant skin breakdown. She was discharged with Keflex. And was seen by her orthopedic yesterday in the office. According to the orthopedic PA she was told by the orthopedic physician that the skin breakdown has resolved. And therefore he directly admitted her from the office. Patient is lying in bed comfortably. No signs of distress. She denies any chest pain, shortness of breath, nausea or vomiting, bowel movement changes or urinary symptoms. Denies any fever or chills or sweats. No evidence of any acute infection. EKG shows a normal sinus rhythm with nonspecific ST and T-wave changes. A prolonged QT interval of 442/480 MS. Her echo in June 2017 showed an EF of 55-60% with mild to moderate mitral stenosis. We have been consulted for medical management and preop clearance. Review of Systems Please refer to HPI otherwise unremarkable Past Medical History Past Medical History: Cancer, Heart Failure, COPD, Diabetes Mellitus, GERD/ Reflux, Hypertension, Pneumonia, Thyroid Disorder Additional Past Medical History / Comment(s): lung cancer x 2-tx with radiation , has spint on rt ankle-non wt bearing, Oxygen at 2 Liters PRN., Hiatal Hernia, Back Pain, Bruises easily(mult bruises currently) , Anemia- hx of blood transfusions (last April 2016), Abd Aneurysm. diarrhea, renal gland insuffeciency, neuropathy, vit D deficiency, restless leg syndrome, fx ribs from September 2016. on NECTAR THICK LIQUIDS, GROUND DIET, AND CRUSH THE CRUSABLE MEDS AND PUT IN APPLESAUCE- due to neck/throat issues from neck surgery . "not supposed to move neck much" per duaghter/WEARING NECK BRACE, HAS URGENCY AND OCC INCONT OF URINE-WERARS BRIEF. History of Any Multi-Drug Resistant Organisms: None Reported Past Surgical History: Section, Orthopedic Surgery Additional Past Surgical History / Comment(s): esme cataracts., left shoulder-pin , neck surgery with "basket" 07/07/17(has brace on neck) Past Anesthesia/Blood Transfusion Reactions: Previous Problems w/ Anesthesia, Blood Transfusion Reaction Additional Past Anesthesia/Blood Transfusion Reaction / Comm: neck surgery 07/07 at [facility]-diff swallowing since'"swollen throat", has neck brace on and "not supposed to move her neck much" per daughter. Hx of blood transfusions - Daughter states that Keerthi has an Antibody and makes it difficult to match., last transfusion Apr 2016 she broke out in a rash a couple days later, Past Psychological History: Anxiety, Depression Additional Psychological History / Comment(s): dementia Smoking Status: Former smoker Past Alcohol Use History: None Reported Additional Past Alcohol Use History / Comment(s): Smoked 3 ppd, Quit smoking 1972. Smoked for 30 yrs. Past Drug Use History: None Reported - Past Family History Sister(s) Family Medical History: Cancer, Deep Vein Thrombosis (DVT) Additional Family Medical History / Comment(s): SISTER #1 BREAST CANCER. SISTER #2 FEMALE CANCER Daughter(s) Family Medical History: Cancer Additional Family Medical History / Comment(s): . Medications and Allergies Home Medications Medication Instructions Recorded Confirmed Type Hydrocortisone [Cortef] 10 mg PO DAILY 04/14/16 08/11/17 History Vits A,C,E/Lutein/Minerals 1 tab PO DAILY 04/14/16 08/11/17 History [Ocuvite with Lutein Tablet] Ergocalciferol [Vitamin D2 50,000 unit PO MO 06/28/16 08/11/17 History (DRISDOL)] Latanoprost Ophth [Xalatan 0.005%] 1 drops BOTH EYES HS 06/28/16 08/11/17 History Omeprazole [PriLOSEC] 20 mg PO DAILY 06/28/16 08/11/17 History Sertraline [Zoloft] 100 mg PO DAILY 06/28/16 08/11/17 History lamoTRIgine [LaMICtal] 150 mg PO HS 06/28/16 08/11/17 History Calcium Carbonate [Calcium] 600 mg PO HS 07/14/17 08/11/17 History Ferrous Sulfate [Iron (65 MG 325 mg PO BID 07/14/17 08/11/17 History Elemental)] INSULIN LISPRO (HumaLOG) [humaLOG] See Protocol SQ ACHS 07/14/17 08/11/17 History Levothyroxine Sodium [Synthroid] 150 mcg PO DAILY 07/14/17 08/11/17 History Furosemide [Lasix] 40 mg PO DAILY tab 07/19/17 08/11/17 Rx HYDROcodone/APAP 10-325MG [[place] 1 tab PO Q6H PRN #60 tab 07/19/17 08/11/17 Rx 10-325] Lisinopril [Prinivil] 10 mg PO DAILY #30 tab 07/19/17 08/11/17 Rx rOPINIRole HCL [Requip] 1 mg PO HS #0 07/19/17 08/11/17 Rx Ipratropium-Albuterol Nebulize 3 ml INHALATION RT-QID PRN 08/01/17 08/11/17 History [Duoneb 0.5 mg-3 mg/3 ml Soln] Metoprolol Tartrate [Lopressor] 25 mg PO DAILY 08/01/17 08/11/17 History Aspirin 325 mg PO DAILY #30 tab 08/04/17 08/11/17 Rx Cephalexin [Keflex] 500 mg PO BID #14 capsule 08/04/17 08/11/17 Rx Allergies Allergy/AdvReac Type Severity Reaction Status Date / Time adhesive Allergy peels skin Verified 08/11/17 16:52 off Physical Exam Vitals: Vital Signs Temp Pulse Resp BP Pulse Ox 08/12/17 07:16 98.2 F 69 16 158/83 93 L 08/12/17 01:53 98.4 F 74 16 126/56 91 L 08/11/17 21:13 97.6 F 70 16 141/71 91 L 08/11/17 16:34 97.8 F 70 16 143/72 96 Intake and Output 08/11/17 08/12/17 08/12/17 22:59 06:59 14:59 Intake Total 170 160 Balance 170 160 Intake: Intake, IV Titration 60 160 Amount Lactated Ringers 1,000 ml 160 @ 20 mls/hr IV .Q24H SEEMA Rx#:[id number] Sodium Chloride 0.9% 1, 60 000 ml @ 20 mls/hr IV . Q24H SEEMA Rx#:[id number] Oral 110 Other: Voiding Method Bedpan # Voids 1 1 Weight 85 kg Head normocephalic Neck in c-collar from previous neck surgery Lungs clear to auscultation bilaterally no wheezing or crackles Heart regular rate and rhythm S1-S2, no rub or gallop Abdomen is soft nontender nondistended positive bowel sounds no hepatosplenomegaly Extremities no edema bilaterally. Right leg is splinted and Abram wrapped. Unable to examine. But it was examined by the orthopedic yesterday. Neuro alert and orientated to 3 Skin exam no evidence of any rashes or skin breakdown Results CBC & Chem 7: 08/11/17 21:05 08/11/17 21:05 Labs: Abnormal Lab Results - Last 24 Hours (Table) 08/11/17 08/11/17 08/11/17 Range/Units 16:38 16:38 17:52 RBC 3.47 L (3.80-5.40) m/uL Hgb 10.6 L (11.4-16.0) gm/dL Hct 33.7 L (34.0-46.0) % RDW 17.0 H (11.5-15.5) % Plt Count 120 L (150-450) k/uL BUN 30 H (7-17) mg/dL Creatinine 1.20 H (0.52-1.04) mg/dL Glucose 167 H (74-99) mg/dL POC Glucose (mg/dL) 137 H (75-99) mg/dL Alkaline Phosphatase 131 H (38-126) U/L Albumin 3.4 L (3.5-5.0) g/dL 08/11/17 08/11/17 08/11/17 Range/Units 20:12 21:05 21:05 RBC 3.11 L (3.80-5.40) m/uL Hgb 9.4 L (11.4-16.0) gm/dL Hct 30.1 L (34.0-46.0) % RDW 17.1 H (11.5-15.5) % Plt Count 106 L (150-450) k/uL BUN 29 H (7-17) mg/dL Creatinine 1.20 H (0.52-1.04) mg/dL Glucose 141 H (74-99) mg/dL POC Glucose (mg/dL) 157 H (75-99) mg/dL Alkaline Phosphatase (38-126) U/L Albumin (3.5-5.0) g/dL 08/12/17 Range/Units 06:56 RBC (3.80-5.40) m/uL Hgb (11.4-16.0) gm/dL Hct (34.0-46.0) % RDW (11.5-15.5) % Plt Count (150-450) k/uL BUN (7-17) mg/dL Creatinine (0.52-1.04) mg/dL Glucose (74-99) mg/dL POC Glucose (mg/dL) 126 H (75-99) mg/dL Alkaline Phosphatase (38-126) U/L Albumin (3.5-5.0) g/dL Assessment and Plan Assessment: 1. Right ankle fracture. Patient scheduled for ORIF of the right trimalleolar ankle fracture. Patient is medically stable for proceeding with surgery. She is at average risk for surgery due to her age and core morbidities. There is no evidence of any new acute infection. And per orthopedics and the cellulitis and skin breakdown on the right ankle has resolved. The ankle is currently wrapped and I was unable to examine the ankle. 2. Right ankle cellulitis completed antibiotics with Keflex 3. Diabetes mellitus type 2: Previous A1c 5.4. She is currently on NovoLog sliding scale coverage. Recently had taken off of her Levemir on last admission. Blood sugar stable 4. Hypothyroidism 5. Essential hypertension: Blood pressure stable resume home meds 6. Stage IV lung cancer status post radiation treatment 2 years [address] Smith 7. 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 Followed by Dr. Smith. Patient is to continue iron supplement. Hemoglobin 9.4 8. 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 Chronic kidney disease stage IIIB. Creatinine at baseline 10. History of cervical spine fusion. Continue c-collar Thank you for this consultation. We will continue to follow along during her hospitalization Time with Patient: Greater than 30 (Greater than 50% of the total time spent in counseling and coordination of care.I performed an examination of the patient and discussed their management with the physician Didactic Instructor. I have reviewed the Physician Didactic Instructor's notes and agree with the documented findings and plan of care)
--- NOTE | 2017-08-12 10:26 | XR ---
EXAMINATION TYPE: XR chest 1V portable DATE OF EXAM: 08/12/2017 COMPARISON: Prior chest x-ray 07/17/2017 HISTORY: Rehabilitation placement TECHNIQUE: Single frontal view of the chest is obtained. FINDINGS: Patient is rotated. Heart remains enlarged. Increased density at the right lung base persi sts. There is some improvement in aeration. No evident pneumothorax. No sizable effusion. IMPRESSION: Improvement in aeration. Cardiomegaly is stable. Right lower lobe density is again noted , consider atelectasis, residual from prior therapy for patient's known lung carcinoma, correlate to exclude pneumonia.
[2017-08-12 11:03] LABS: Glucose,Whole Blood 146 mg/dL (75-99)
[2017-08-12] MEDS: SODIUM CHLORIDE 0.9% 1,000 ML IV SCH ×2 (11:26→18:02)
[2017-08-12] MEDS: HYDROmorphone 0.5 MG/0.5 ML SYRINGE IVP PRN ×4 (11:27→19:00)
[2017-08-12] MEDS ORDERED: IV FLUID CONTINUATION 1,000 ML IV ONE (13:51)
[2017-08-12] MEDS ORDERED: ONDANSETRON 4 MG/2 ML VIAL IVP ONE (14:25)
[2017-08-12] MEDS ORDERED: KETAMINE 10 MG/ML 20 ML VIAL ONE (14:32)
[2017-08-12] MEDS ORDERED: diphenhydrAMINE 50 MG/ML 1 ML VIAL ONE (14:32)
[2017-08-12] MEDS ORDERED: MIDAZOLAM 2 MG/2 ML VIAL ONE (14:32)
[2017-08-12] MEDS ORDERED: ePHEDrine SULFATE/0.9% NACL/PF 50 MG/5 ML SYRINGE IV ONE (14:32)
[2017-08-12] MEDS ORDERED: SODIUM CHLORIDE 0.9% 100 ML with ceFAZolin 2,000 MG IV ONE ×2 (14:57)
--- NOTE | 2017-08-12 16:10 | P.OP ---
Date of Procedure: 08/12/17 Preoperative Diagnosis: 1. Right trimalleolar ankle fracture dislocation 2. COPD 3. Diabetes with peripheral neuropathy 4. 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 Open reduction and internal fixation of right trimalleolar ankle fracture ( open reduction and internal fixation of right lateral malleolus, nonoperative management medial malleolus and posterior malleolus) 2. Application of short leg splint by physician Anesthesia: spinal Surgeon: Otto Lamas Silversmith Apprentice #1: Alivia England Estimated Blood Loss (ml): 25 Pathology: none sent Condition: stable Disposition: PACU Indications for Procedure: The patient is an 81-year-old female with multiple medical problems including COPD and diabetes with peripheral neuropathy who is had multiple recent fragility fractures. The patient recently had an upper cervical spine fracture that required a fusion from the base of her skull to her middle cervical spine. While she was recovering from this she fell, sustaining a closed fracture dislocation of the ankle. She was admitted to the hospital and I was consulted. She was placed in a splint to allow for resolution of soft tissue swelling. Last week we attempted to take her to the operating room but she developed a superficial ulcer and macerated skin over the lateral malleolus. Her ankle was re-reduced and a Silvadene dressing and bulky Conway splint was placed. She was seen in my office earlier this week for a wound check. The skin had healed and was viable for surgery. I do lengthy discussion with the patient and her family on the potential risks and complication of surgery including but not limited to risk of anesthesia, risk of superficial infection, risk of deep infection, risk of delayed wound healing, risk of superficial wound necrosis, risk of deep wound necrosis, risk of fracture nonunion, risk of fracture malunion, risk of hardware failure, risk of postoperative displacement , risk of intraoperative or postoperative fracture, risk of post medical arthritis, risk of DVT, risk of PE, risk of other medical complications, and possibly loss of life or limb. The patient understands the surgery and that she is at a much higher risk of having a complication due to her age and multiple medical comorbidities. Description of Procedure: The patient was identified in preoperative holding and the correct right ankle was marked with my initials. I reviewed the consent form with the patient and all of her family. Once her questions were answered she was brought back to the operating room. She was positioned on the gurney and a spinal anesthetic was administered. The patient was then carefully transferred onto the OR table. A light sedation was applied by anesthesia. Preoperative antibiotics were administered. A tourniquet was applied to the proximal aspect of the right thigh. The contralateral left leg was secured to the OR table with foam and tape. A bump was placed under the right buttock internally rotating the right leg. A ramp was placed under the right leg. A timeout was then performed identifying the correct patient, operative extremity and procedure. The patient's leg was then elevated, exsanguinated with an Esmarch bandage, and the tourniquet was inflated to 250 mmHg. I outlined a straight lateral incision to the distal fibula over the skin. Skin incision was made a 15 blade scalpel. Dissection was carried down carefully to the subcutaneous tissues with tenotomy scissors. The fascia over the peroneal muscles on the periosteum over the fibula was incised longitudinally in line with the skin incision. The fracture site was circumferentially exposed. There was a large amount of early consolidating calcific the fracture site which was sharply debrided with a knife. Once the fracture margins were completely exposed and debrided a gentle closed reduction was performed by pulling longitudinal traction on the leg and using a point-to- point reduction clamp to gently keyed the fracture fragments together. Due to the severe osteopenia I was unable to clamp the fracture. The fibula was held reduced and out to length and I verified that the talus was reduced in the ankle mortise on both the mortise and lateral views. Peripherally placed K wires were placed across the fracture holding the reduction. I then contoured a 10 hole plate over the lateral aspect of the fibula. Once it was in acceptable position a nonlocking 3.5 mm screw was placed just proximal to the fracture through the plate bring the plate down to bone. I then placed a second 3.5 mm screw in the most proximal hole of the plate centering it on the bone. I then proceeded to place a combination of 4.0 mm cancellus and 3.5 mm locking screws in the distal fragment. I then proceeded to place 4 syndesmotic screws, 4 mm in diameter as a syndesmotic ladder to help hold reduction in her severely osteopenic bone. Due to the Etelvina comminuted nature of her medial malleolus I elected to treat her medial malleolus fracture nonoperatively. At this point final fluoroscopic images were taken. The fibula appeared to be out to length and the talus was reduced within the ankle mortise. The wound was copiously irrigated. The fascia and periosteum was closed with a running 0 Vicryl stitch. The deep subcu was reapproximated using 2-0 Vicryl. The skin was closed with a running 4-0 Monocryl subcuticular stitch and Dermabond. I verified that all instrument, sponge, and sharp counts were correct. A sterile dressing consisting of Betadine soaked Adaptic, 4 x 4 and web rolls applied. The drapes were taken down and a well-padded bulky Conway splint was placed with the ankle in neutral. The patient will was awoken from her sedation, transferred to a gurney and brought to PACU without procedure well Alivia England PA-C was required a skilled registered sales assistant for patient positioning, surgical exposure, reduction of fracture, placement of hardware, closure of wound, and application of splint. Plan: The patient is going to be admitted to the hospital for pain control, IV antibiotics, and medical management. She is to be strictly nonweightbearing on her right ankle. She will likely need discharge to rehab. DVT prophylaxis is with Lovenox while in house and home on aspirin 325 mg twice daily.
--- NOTE | 2017-08-12 16:25 | FL ---
EXAMINATION TYPE: FL guidance operating room, XR ankle limited 2 views RT DATE OF EXAM: 08/12/2017 COMPARISON: NONE HISTORY: 81 year-old female right ankle fracture FINDINGS: 2 images of the distal leg demonstrating side plate and multiple screw fixation along the distal fibu la with 4 transverse syndesmotic screws as well. FLUOROSCOPY Fluoroscopy time of 1 minute 19 seconds was used during right ankle/syndesmotic ORIF. 2 image/s docu ment/s the procedure. IMPRESSION: Intraoperative fluoroscopy as above.
[2017-08-12 19:57] LABS: Glucose,Whole Blood 123 mg/dL (75-99)
[2017-08-12] MEDS: CALCIUM CARBONATE 500 MG CHEWABLE PO SCH (20:43)
[2017-08-12] MEDS: lamoTRIgine 100 MG TAB PO SCH (20:44)
[2017-08-12] MEDS: LATANOPROST 0.005% OPHTH DROPS 2.5 ML BTL BOTH EYES SCH (20:44)
[2017-08-13] MEDS: HYDROcodone/APAP 10-325MG 1 EACH TAB PO PRN ×3 (03:38→18:09)
[2017-08-13] MEDS: LEVOTHYROXINE 75 MCG TAB PO SCH (06:05)
[2017-08-13 07:06] LABS: Glucose,Whole Blood 148 mg/dL (75-99)
[2017-08-13 07:22] LABS: Anisocytosis Slight; Basophils % (A) 0 %; Eosinophils # (A) 0.2 k/uL (0-0.7); Eosinophils % (A) 3 %; HCT 28.6 % (34.0-46.0); Hypochromasia Slight; Lymphocytes # (A) 1.8 k/uL (1.0-4.8); Lymphocytes % (A) 27 %; MCH 30.1 pg (25.0-35.0); MCHC 31.4 g/dL (31.0-37.0); Macrocytosis Slight; Mean Platelet Volume 9.8; Monocytes # (A) 0.5 k/uL (0-1.0); Monocytes % (A) 7 %; Neutrophils % (A) 61 %; Platelet Count 108 k/uL (150-450); RBC 2.98 m/uL (3.80-5.40); RDW 16.8 % (11.5-15.5); WBC 6.5 k/uL (3.8-10.6)
[2017-08-13 07:46] LABS: Calcium 8.8 mg/dL (8.4-10.2); Potassium 4.7 mmol/L (3.5-5.1)
[2017-08-13] MEDS: INSULIN ASPART 100 UNIT/ML 1 ML 10 ML VIAL SQ SCH ×4 (07:59→20:41)
[2017-08-13] MEDS: VIT A,C & E-LUTEIN-MINERALS 1 EACH TAB PO SCH (08:17)
[2017-08-13] MEDS: METOPROLOL TARTRATE 25 MG TAB PO SCH (08:17)
[2017-08-13] MEDS: PANTOPRAZOLE 40 MG TABLET PO SCH (08:17)
[2017-08-13] MEDS: SERTRALINE 100 MG TAB PO SCH (08:17)
[2017-08-13] MEDS: FUROSEMIDE 40 MG TAB PO SCH (08:17)
[2017-08-13] MEDS: HYDROCORTISONE 10 MG TAB PO SCH (08:17)
[2017-08-13] MEDS: FERROUS SULFATE 325 MG TAB PO SCH ×2 (08:17→20:41)
[2017-08-13] MEDS: LISINOPRIL 10 MG TAB PO SCH (08:17)
[2017-08-13 11:40] LABS: Glucose,Whole Blood 224 mg/dL (75-99)
--- NOTE | 2017-08-13 12:32 | P.PN ---
Subjective Progress Note Date: 08/13/17 Principal diagnosis: Status post open reduction internal fixation right ankle This is an 81-year-old female who is status post open reduction and internal fixation right ankle. She is doing well from an orthopedic standpoint. She rates her pain 5/10 today. She is resting comfortably. Objective - Vital Signs Vital signs: Vital Signs Temp 98.5 F 08/13/17 07:00 Pulse 85 08/13/17 07:00 Resp 14 08/13/17 07:00 BP 126/70 08/13/17 08:17 Pulse Ox 95 08/13/17 01:02 Intake & Output 08/12/17 08/13/17 08/13/17 18:59 06:59 18:59 Intake Total 900 676 Output Total 25 200 Balance 875 476 Intake: IV 900 196 Sodium Chloride 0.9% 1, 100 196 000 ml @ 20 mls/hr IV . Q24H [facility] Rx#:[id number] Oral 480 Output: Urine 200 Estimated Blood Loss 25 Other: Voiding Method Bedpan Bedpan Diaper # Voids 1 - Exam This is a pleasant 81-year-old female in no acute distress. She is alert and oriented but sleepy today. She is resting comfortably on her left side with the right lower extremity elevated on a pillow. Her splint is intact. She has full toe motion without difficulty. Neurovascular status lower extremity is intact. - Labs CBC & Chem 7: 08/13/17 06:56 08/13/17 06:56 Labs: Abnormal Lab Results - Last 24 Hours (Table) 08/12/17 08/13/17 08/13/17 Range/Units 19:51 06:56 06:56 RBC 2.98 L (3.80-5.40) m/uL Hgb 9.0 L (11.4-16.0) gm/dL Hct 28.6 L (34.0-46.0) % RDW 16.8 H (11.5-15.5) % Plt Count 108 L (150-450) k/uL BUN 26 H (7-17) mg/dL Creatinine 1.22 H (0.52-1.04) mg/dL Glucose 128 H (74-99) mg/dL POC Glucose (mg/dL) 123 H (75-99) mg/dL 08/13/17 08/13/17 Range/Units 07:02 11:34 RBC (3.80-5.40) m/uL Hgb (11.4-16.0) gm/dL Hct (34.0-46.0) % RDW (11.5-15.5) % Plt Count (150-450) k/uL BUN (7-17) mg/dL Creatinine (0.52-1.04) mg/dL Glucose (74-99) mg/dL POC Glucose (mg/dL) 148 H 224 H (75-99) mg/dL Assessment and Plan (1) Fall Current Visit: No Status: Acute Code(s): W19.XXXA - UNSPECIFIED FALL, INITIAL ENCOUNTER SNOMED Code(s): 0888757 (2) Trimalleolar fracture of ankle, closed Current Visit: No Status: Acute Priority: Medium Code(s): S82.853A - DISPLACED TRIMALLEOLAR FRACTURE OF UNSP LOWER LEG, INIT SNOMED Code(s): 9982187 Plan: The clinical findings are discussed the patient and her daughter. Continue current care. Plan discharged to inpatient rehab Tuesday.
--- NOTE | 2017-08-13 13:09 | P.PN ---
Subjective Progress Note Date: 08/13/17 Patient is doing well today. No events overnight. Pain is well controlled. Objective - Vital Signs Vital signs: Vital Signs Temp 98.5 F 08/13/17 07:00 Pulse 85 08/13/17 07:00 Resp 14 08/13/17 07:00 BP 126/70 08/13/17 08:17 Pulse Ox 95 08/13/17 01:02 Intake & Output 08/12/17 08/13/17 08/13/17 18:59 06:59 18:59 Intake Total 900 676 Output Total 25 200 Balance 875 476 Intake: IV 900 196 Sodium Chloride 0.9% 1, 100 196 000 ml @ 20 mls/hr IV . Q24H [facility] Rx#:[id number] Oral 480 Output: Urine 200 Estimated Blood Loss 25 Other: Voiding Method Bedpan Bedpan Diaper # Voids 1 - Exam General: The patient is awake and alert, in no distress Eye: there is normal conjunctiva bilaterally. Neck: Cervical collar in place Cardiovascular: Normal S1-S2, no S3-S4, no murmurs. Respiratory: Lungs clear to auscultation bilaterally Gastrointestinal: Abdomen is soft, nontender Musculoskeletal: There is no pedal edema. Neurological:. Speech is normal. Skin: Skin is warm and dry - Labs CBC & Chem 7: 08/13/17 06:56 08/13/17 06:56 Labs: Abnormal Lab Results - Last 24 Hours (Table) 08/12/17 08/13/17 08/13/17 Range/Units 19:51 06:56 06:56 RBC 2.98 L (3.80-5.40) m/uL Hgb 9.0 L (11.4-16.0) gm/dL Hct 28.6 L (34.0-46.0) % RDW 16.8 H (11.5-15.5) % Plt Count 108 L (150-450) k/uL BUN 26 H (7-17) mg/dL Creatinine 1.22 H (0.52-1.04) mg/dL Glucose 128 H (74-99) mg/dL POC Glucose (mg/dL) 123 H (75-99) mg/dL 08/13/17 08/13/17 Range/Units 07:02 11:34 RBC (3.80-5.40) m/uL Hgb (11.4-16.0) gm/dL Hct (34.0-46.0) % RDW (11.5-15.5) % Plt Count (150-450) k/uL BUN (7-17) mg/dL Creatinine (0.52-1.04) mg/dL Glucose (74-99) mg/dL POC Glucose (mg/dL) 148 H 224 H (75-99) mg/dL Assessment and Plan Assessment: 1. Right ankle fracture. Status post ORIF of the right trimalleolar ankle fracture. 2. Right ankle cellulitis completed antibiotics with Keflex 3. Diabetes mellitus type 2: Previous A1c 5.4. She is currently on NovoLog sliding scale coverage. Recently had taken off of her Levemir on last admission. Blood sugar stable 4. Hypothyroidism 5. Essential hypertension: Blood pressure stable resume home meds 6. History of lung cancer status post radiation treatment 2 years ago[address] by Dr. Smith 7. 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 Followed by Dr. Smith. Patient is to continue iron supplement. Hemoglobin 9.4 8. 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 Chronic kidney disease stage IIIB. Creatinine at baseline 10. History of cervical spine fusion. Continue c-collar
[2017-08-13] MEDS: IPRATROPIUM-ALBUTEROL 3 ML NEB INHALATION PRN (16:46)
[2017-08-13 17:20] LABS: Glucose,Whole Blood 193 mg/dL (75-99)
[2017-08-13 19:49] LABS: Glucose,Whole Blood 179 mg/dL (75-99)
[2017-08-13] MEDS: CALCIUM CARBONATE 500 MG CHEWABLE PO SCH (20:41)
[2017-08-13] MEDS: LATANOPROST 0.005% OPHTH DROPS 2.5 ML BTL BOTH EYES SCH (20:41)
[2017-08-13] MEDS: lamoTRIgine 100 MG TAB PO SCH (20:41)
[2017-08-14] MEDS: LACTATED RINGERS 1,000 ML IV SCH (01:17)
[2017-08-14] MEDS: HYDROcodone/APAP 10-325MG 1 EACH TAB PO PRN (01:46)
[2017-08-14] MEDS: INSULIN ASPART 100 UNIT/ML 1 ML 10 ML VIAL SQ SCH ×4 (07:04→20:18)
[2017-08-14 07:23] LABS: Glucose,Whole Blood 133 mg/dL (75-99)
[2017-08-14 07:31] LABS: Basophils % (A) 0 %; Eosinophils # (A) 0.2 k/uL (0-0.7); Eosinophils % (A) 3 %; HCT 29.9 % (34.0-46.0); HGB 9.3 gm/dL (11.4-16.0); Hypochromasia Slight; Lymphocytes # (A) 2.3 k/uL (1.0-4.8); Lymphocytes % (A) 35 %; MCH 30.3 pg (25.0-35.0); MCHC 30.9 g/dL (31.0-37.0); MCV 97.9 fL (80.0-100.0); Macrocytosis Slight; Mean Platelet Volume 9.1; Monocytes # (A) 0.4 k/uL (0-1.0); Monocytes % (A) 7 %; Neutrophils # (A) 3.4 k/uL (1.3-7.7); Neutrophils % (A) 53 %; Platelet Count 113 k/uL (150-450); RBC 3.06 m/uL (3.80-5.40); RDW 15.9 % (11.5-15.5); WBC 6.5 k/uL (3.8-10.6)
[2017-08-14 07:36] LABS: Calcium 8.8 mg/dL (8.4-10.2); Potassium 5.1 mmol/L (3.5-5.1)
[2017-08-14] MEDS: SERTRALINE 100 MG TAB PO SCH (08:34)
[2017-08-14] MEDS: LEVOTHYROXINE 75 MCG TAB PO SCH (08:34)
[2017-08-14] MEDS: PANTOPRAZOLE 40 MG TABLET PO SCH (08:34)
[2017-08-14] MEDS: VIT A,C & E-LUTEIN-MINERALS 1 EACH TAB PO SCH ×2 (08:34→08:40)
[2017-08-14] MEDS: HYDROCORTISONE 10 MG TAB PO SCH (08:34)
[2017-08-14] MEDS: FERROUS SULFATE 325 MG TAB PO SCH ×2 (08:34→19:46)
[2017-08-14] MEDS: LISINOPRIL 10 MG TAB PO SCH (08:34)
[2017-08-14] MEDS: FUROSEMIDE 40 MG TAB PO SCH (08:35)
[2017-08-14] MEDS: METOPROLOL TARTRATE 25 MG TAB PO SCH (08:35)
--- NOTE | 2017-08-14 10:53 | P.PN ---
Subjective Progress Note Date: 08/14/17 Principal diagnosis: Status post open reduction internal fixation right ankle This is an 81-year-old female who is status post open reduction and internal fixation right ankle. She is doing well from an orthopedic standpoint. She rates her pain 4/10 today. She is resting comfortably. Objective - Vital Signs Vital signs: Vital Signs Temp 98.2 F 08/14/17 07:00 Pulse 71 08/14/17 07:00 Resp 14 08/14/17 07:00 BP 113/65 08/14/17 07:00 Pulse Ox 97 08/14/17 07:00 Intake & Output 08/13/17 08/14/17 08/14/17 18:59 06:59 18:59 Intake Total 240 290 0 Output Total 100 Balance 240 190 0 Intake: IV 140 Sodium Chloride 0.9% 1, 140 000 ml @ 20 mls/hr IV . Q24H [facility] Rx#:[id number] Oral 240 150 0 Output: Urine 100 Other: Voiding Method Bedpan # Voids 2 2 - Exam This is a pleasant 81-year-old female in no acute distress. She is alert and oriented but sleepy today. Cervical collar is in place. She is up in a chair. Her splint is intact. She has full toe motion without difficulty. Neurovascular status lower extremity is intact. - Labs CBC & Chem 7: 08/14/17 07:06 08/14/17 07:06 Labs: Abnormal Lab Results - Last 24 Hours (Table) 08/13/17 08/13/17 08/13/17 Range/Units 11:34 17:18 19:40 RBC (3.80-5.40) m/uL Hgb (11.4-16.0) gm/dL Hct (34.0-46.0) % MCHC (31.0-37.0) g/dL RDW (11.5-15.5) % Plt Count (150-450) k/uL BUN (7-17) mg/dL Creatinine (0.52-1.04) mg/dL Glucose (74-99) mg/dL POC Glucose (mg/dL) 224 H 193 H 179 H (75-99) mg/dL 08/14/17 08/14/17 08/14/17 Range/Units 07:02 07:06 07:06 RBC 3.06 L (3.80-5.40) m/uL Hgb 9.3 L (11.4-16.0) gm/dL Hct 29.9 L (34.0-46.0) % MCHC 30.9 L (31.0-37.0) g/dL RDW 15.9 H (11.5-15.5) % Plt Count 113 L (150-450) k/uL BUN 32 H (7-17) mg/dL Creatinine 1.54 H (0.52-1.04) mg/dL Glucose 115 H (74-99) mg/dL POC Glucose (mg/dL) 133 H (75-99) mg/dL Assessment and Plan (1) Fall Current Visit: No Status: Acute Code(s): W19.XXXA - UNSPECIFIED FALL, INITIAL ENCOUNTER SNOMED Code(s): 5758483 (2) Trimalleolar fracture of ankle, closed Current Visit: No Status: Acute Priority: Medium Code(s): S82.853A - DISPLACED TRIMALLEOLAR FRACTURE OF UNSP LOWER LEG, INIT SNOMED Code(s): 7965437 Plan: The clinical findings are discussed the patient and her daughter. Continue current care. Plan discharged to inpatient rehab Tuesday.
[2017-08-14 11:31] LABS: Glucose,Whole Blood 303 mg/dL (75-99)
--- NOTE | 2017-08-14 15:11 | P.PN ---
Subjective Progress Note Date: 08/14/17 Patient is doing well today. No events overnight. Pain is well controlled. Objective - Vital Signs Vital signs: Vital Signs Temp 98.2 F 08/14/17 07:00 Pulse 71 08/14/17 07:00 Resp 14 08/14/17 07:00 BP 113/65 08/14/17 07:00 Pulse Ox 97 08/14/17 07:00 Intake & Output 08/13/17 08/14/17 08/14/17 18:59 06:59 18:59 Intake Total 240 290 160 Output Total 100 Balance 240 190 160 Intake: IV 140 160 Sodium Chloride 0.9% 1, 140 160 000 ml @ 20 mls/hr IV . Q24H [facility] Rx#:[id number] Oral 240 150 0 Output: Urine 100 Other: Voiding Method Bedpan # Voids 2 2 1 - Exam General: The patient is awake and alert, in no distress Eye: there is normal conjunctiva bilaterally. Neck: Cervical collar in place Cardiovascular: Normal S1-S2, no S3-S4, no murmurs. Respiratory: Lungs clear to auscultation bilaterally Gastrointestinal: Abdomen is soft, nontender Musculoskeletal: There is no pedal edema. Neurological:. Speech is normal. Skin: Skin is warm and dry - Labs CBC & Chem 7: 08/14/17 07:06 08/14/17 07:06 Labs: Abnormal Lab Results - Last 24 Hours (Table) 08/13/17 08/13/17 08/14/17 Range/Units 17:18 19:40 07:02 RBC (3.80-5.40) m/uL Hgb (11.4-16.0) gm/dL Hct (34.0-46.0) % MCHC (31.0-37.0) g/dL RDW (11.5-15.5) % Plt Count (150-450) k/uL BUN (7-17) mg/dL Creatinine (0.52-1.04) mg/dL Glucose (74-99) mg/dL POC Glucose (mg/dL) 193 H 179 H 133 H (75-99) mg/dL 08/14/17 08/14/17 08/14/17 Range/Units 07:06 07:06 11:26 RBC 3.06 L (3.80-5.40) m/uL Hgb 9.3 L (11.4-16.0) gm/dL Hct 29.9 L (34.0-46.0) % MCHC 30.9 L (31.0-37.0) g/dL RDW 15.9 H (11.5-15.5) % Plt Count 113 L (150-450) k/uL BUN 32 H (7-17) mg/dL Creatinine 1.54 H (0.52-1.04) mg/dL Glucose 115 H (74-99) mg/dL POC Glucose (mg/dL) 303 H (75-99) mg/dL Assessment and Plan Assessment: 1. Right ankle fracture. Status post ORIF of the right trimalleolar ankle fracture. 2. Right ankle cellulitis completed antibiotics with Keflex 3. Diabetes mellitus type 2: Previous A1c 5.4. She is currently on NovoLog sliding scale coverage. Recently had taken off of her Levemir on last admission. Blood sugar stable 4. Hypothyroidism 5. Essential hypertension: Blood pressure stable resume home meds 6. History of lung cancer status post radiation treatment 2 years ago[address] by Dr. Smith 7. 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 Followed by Dr. Smith. Patient is to continue iron supplement. Hemoglobin 9.4 8. 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 Chronic kidney disease stage IIIB. Creatinine at baseline 10. History of cervical spine fusion. Continue c-collar
[2017-08-14] MEDS: SODIUM CHLORIDE 0.9% 1,000 ML IV SCH (16:18)
[2017-08-14] MEDS: IPRATROPIUM-ALBUTEROL 3 ML NEB INHALATION PRN (16:37)
[2017-08-14 17:05] LABS: Glucose,Whole Blood 65 mg/dL (75-99)
[2017-08-14] MEDS: lamoTRIgine 100 MG TAB PO SCH (19:46)
[2017-08-14] MEDS: CALCIUM CARBONATE 500 MG CHEWABLE PO SCH (19:46)
[2017-08-14] MEDS: LATANOPROST 0.005% OPHTH DROPS 2.5 ML BTL BOTH EYES SCH (19:47)
[2017-08-14 20:38] LABS: Glucose,Whole Blood 193 mg/dL (75-99)
[2017-08-15] MEDS: IPRATROPIUM-ALBUTEROL 3 ML NEB INHALATION PRN (01:28)
[2017-08-15] MEDS: LACTATED RINGERS 1,000 ML IV SCH (02:00)
[2017-08-15 07:14] LABS: Basophils % (A) 0 %; Eosinophils # (A) 0.2 k/uL (0-0.7); Eosinophils % (A) 3 %; HCT 27.5 % (34.0-46.0); HGB 8.6 gm/dL (11.4-16.0); Hypochromasia Slight; Lymphocytes # (A) 1.4 k/uL (1.0-4.8); Lymphocytes % (A) 28 %; MCH 30.3 pg (25.0-35.0); MCHC 31.4 g/dL (31.0-37.0); MCV 96.6 fL (80.0-100.0); Mean Platelet Volume 8.5; Monocytes # (A) 0.4 k/uL (0-1.0); Monocytes % (A) 7 %; Neutrophils % (A) 59 %; Platelet Count 105 k/uL (150-450); RBC 2.85 m/uL (3.80-5.40); RDW 15.8 % (11.5-15.5)
[2017-08-15 07:23] LABS: Anion Gap 7 mmol/L; Blood Urea Nitrogen 24 mg/dL (7-17); Calcium 8.5 mg/dL (8.4-10.2); Carbon Dioxide 30 mmol/L (22-30); Chloride 104 mmol/L (98-107); Glucose 142 mg/dL (74-99); Potassium 4.1 mmol/L (3.5-5.1); Sodium 141 mmol/L (137-145)
[2017-08-15] MEDS: PANTOPRAZOLE 40 MG TABLET PO SCH (07:31)
[2017-08-15] MEDS: LEVOTHYROXINE 75 MCG TAB PO SCH (07:31)
[2017-08-15] MEDS: SERTRALINE 100 MG TAB PO SCH (07:34)
[2017-08-15] MEDS: FUROSEMIDE 40 MG TAB PO SCH (07:34)
[2017-08-15] MEDS: HYDROCORTISONE 10 MG TAB PO SCH (07:34)
[2017-08-15] MEDS: FERROUS SULFATE 325 MG TAB PO SCH (07:34)
[2017-08-15] MEDS: VIT A,C & E-LUTEIN-MINERALS 1 EACH TAB PO SCH (07:34)
[2017-08-15] MEDS: LISINOPRIL 10 MG TAB PO SCH (07:43)
[2017-08-15] MEDS: METOPROLOL TARTRATE 25 MG TAB PO SCH (07:43)
[2017-08-15 07:47] LABS: Glucose,Whole Blood 145 mg/dL (75-99)
[2017-08-15] MEDS: INSULIN ASPART 100 UNIT/ML 1 ML 10 ML VIAL SQ SCH ×2 (07:47→13:14)
--- NOTE | 2017-08-15 09:19 | P.DS ---
Providers Date of admission: 08/14/17 14:41 Expected date of discharge: 08/15/17 Attending physician: Otto Lamas Consults: 08/11/17 16:08 Consult Physician Urgent Consulting Provider: Kady Hudson Consult Reason/Comments: Pre op clearance and medical management Do you want consulting provider notified?: Yes 08/11/17 16:15 Consult Physician Urgent Consulting Provider: Nya Jones Consult Reason/Comments: pre op clearance medical mangement Do you want consulting provider notified?: Yes Primary care physician: Stated None - Discharge Diagnosis(es) (1) Trimalleolar fracture of ankle, closed Patient was admitted to the OR on 08/12/17 to undergo ORIF of right ankle fracture. She had failed conservative measures as an outpatient and desired to proceed with elective surgery after given informed consent. She underwent the above procedure which she tolerated well without complication. Postoperative hospital course has remained without complication. On day of discharge she is afebrile, vital signs stable, labs within acceptable ranges, tolerating by mouth meds and diet, voiding without difficulty, positive flatus, denies abdominal pain or calf pain, pain is controlled on oral pain medication and has no new complaints. Wound is benign, neurovascular status is intact, calf is soft and nontender, abdomen soft and nontender. Review of systems is negative for numbness, tingling, fever, chills, chest pain, shortness breath, nausea, vomiting, dizziness, headaches, slurred speech or other. Current Visit: No Status: Acute Priority: Medium Procedures: ORIF Right ankle fracture Patient Condition at Discharge: Fair Plan - Discharge Summary Discharge Rx Participant: No New Discharge Prescriptions: New Aspirin 325 mg PO BID #60 tab HYDROcodone/APAP 5-325MG [[place] 5-325] 1 - 2 each PO Q4-6H PRN #90 tab PRN Reason: Pain No Action Vits A,C,E/Lutein/Minerals [Ocuvite with Lutein Tablet] 1 tab PO DAILY Hydrocortisone [Cortef] 10 mg PO DAILY Sertraline [Zoloft] 100 mg PO DAILY lamoTRIgine [LaMICtal] 150 mg PO HS Omeprazole [PriLOSEC] 20 mg PO DAILY Latanoprost Ophth [Xalatan 0.005%] 1 drops BOTH EYES HS Ergocalciferol [Vitamin D2 (DRISDOL)] 50,000 unit PO MO Ferrous Sulfate [Iron (65 MG Elemental)] 325 mg PO BID INSULIN LISPRO (HumaLOG) [humaLOG] See Protocol SQ ACHS Levothyroxine Sodium [Synthroid] 150 mcg PO DAILY Calcium Carbonate [Calcium] 600 mg PO HS Furosemide [Lasix] 40 mg PO DAILY tab Lisinopril [Prinivil] 10 mg PO DAILY #30 tab rOPINIRole HCL [Requip] 1 mg PO HS #0 HYDROcodone/APAP 10-325MG [[place] 10-325] 1 tab PO Q6H PRN #60 tab PRN Reason: Pain Ipratropium-Albuterol Nebulize [Duoneb 0.5 mg-3 mg/3 ml Soln] 3 ml INHALATION RT-QID PRN PRN Reason: Wheezing Metoprolol Tartrate [Lopressor] 25 mg PO DAILY Aspirin 325 mg PO DAILY #30 tab Cephalexin [Keflex] 500 mg PO BID #14 capsule Discharge Medication List Hydrocortisone [Cortef] 10 mg PO DAILY 04/14/16 [History] Vits A,C,E/Lutein/Minerals [Ocuvite with Lutein Tablet] 1 tab PO DAILY 04/14/16 [History] Ergocalciferol [Vitamin D2 (DRISDOL)] 50,000 unit PO MO 06/28/16 [History] Latanoprost Ophth [Xalatan 0.005%] 1 drops BOTH EYES HS 06/28/16 [History] Omeprazole [PriLOSEC] 20 mg PO DAILY 06/28/16 [History] Sertraline [Zoloft] 100 mg PO DAILY 06/28/16 [History] lamoTRIgine [LaMICtal] 150 mg PO HS 06/28/16 [History] Calcium Carbonate [Calcium] 600 mg PO HS 07/14/17 [History] Ferrous Sulfate [Iron (65 MG Elemental)] 325 mg PO BID 07/14/17 [History] INSULIN LISPRO (HumaLOG) [humaLOG] See Protocol SQ ACHS 07/14/17 [History] Levothyroxine Sodium [Synthroid] 150 mcg PO DAILY 07/14/17 [History] Furosemide [Lasix] 40 mg PO DAILY tab 07/19/17 [Rx] HYDROcodone/APAP 10-325MG [[place] 10-325] 1 tab PO Q6H PRN #60 tab 07/19/17 [Rx] Lisinopril [Prinivil] 10 mg PO DAILY #30 tab 07/19/17 [Rx] rOPINIRole HCL [Requip] 1 mg PO HS #0 07/19/17 [Rx] Ipratropium-Albuterol Nebulize [Duoneb 0.5 mg-3 mg/3 ml Soln] 3 ml INHALATION RT -QID PRN 08/01/17 [History] Metoprolol Tartrate [Lopressor] 25 mg PO DAILY 08/01/17 [History] Aspirin 325 mg PO DAILY #30 tab 08/04/17 [Rx] Cephalexin [Keflex] 500 mg PO BID #14 capsule 08/04/17 [Rx] Aspirin 325 mg PO BID #60 tab 08/14/17 [Rx] HYDROcodone/APAP 5-325MG [[place] 5-325] 1 - 2 each PO Q4-6H PRN #90 tab 08/14/17 [Rx] Follow up Appointment(s)/Referral(s): Otto Lamas MD [Medical Doctor] - 10 Days Activity/Diet/Wound Care/Special Instructions: Maintain splint. Nonweightbearing right lower extremity with walker. Discharge Disposition: TRANSFER TO SNF/ECF
--- NOTE | 2017-08-15 09:39 | P.PN ---
Subjective Progress Note Date: 08/15/17 Status post ORIF of the right ankle Patient's pain is controlled. Denies any chest pain or shortness of breath. Has been having bowel movements. Denies any difficulty urinating. Scheduled for discharge to [facility] today. Blood pressure 170/79 this morning. After medications blood pressure has come down to 132\75 Objective - Vital Signs Vital signs: Vital Signs Temp 98.0 F 08/15/17 09:32 Pulse 73 08/15/17 09:32 Resp 17 08/15/17 09:32 BP 132/75 08/15/17 09:32 Pulse Ox 95 08/15/17 09:32 Intake & Output 08/14/17 08/15/17 08/15/17 18:59 06:59 18:59 Intake Total 810 710 Output Total 200 Balance 610 710 Intake: IV 160 70 Sodium Chloride 0.9% 1, 160 70 000 ml @ 20 mls/hr IV . Q24H [facility] Rx#:[id number] Oral 650 640 Output: Urine 200 Other: Voiding Method Bedpan # Voids 1 2 - Exam Head normocephalic Neck c-collar in place Lungs clear to auscultation bilaterally no wheezing or crackles Heart regular rate and rhythm S1-S2, no rub or gallop Abdomen is soft nontender nondistended positive bowel sounds no hepatosplenomegaly Extremities right leg in splint Neuro alert and orientated to 3 - Labs CBC & Chem 7: 08/15/17 06:40 08/15/17 06:40 Labs: Abnormal Lab Results - Last 24 Hours (Table) 08/14/17 08/14/17 08/14/17 Range/Units 11:26 17:03 20:15 RBC (3.80-5.40) m/uL Hgb (11.4-16.0) gm/dL Hct (34.0-46.0) % RDW (11.5-15.5) % Plt Count (150-450) k/uL BUN (7-17) mg/dL Creatinine (0.52-1.04) mg/dL Glucose (74-99) mg/dL POC Glucose (mg/dL) 303 H 65 L 193 H (75-99) mg/dL 08/15/17 08/15/17 08/15/17 Range/Units 06:40 06:40 07:44 RBC 2.85 L (3.80-5.40) m/uL Hgb 8.6 L (11.4-16.0) gm/dL Hct 27.5 L (34.0-46.0) % RDW 15.8 H (11.5-15.5) % Plt Count 105 L (150-450) k/uL BUN 24 H (7-17) mg/dL Creatinine 1.06 H (0.52-1.04) mg/dL Glucose 142 H (74-99) mg/dL POC Glucose (mg/dL) 145 H (75-99) mg/dL Assessment and Plan Assessment: 1. Right ankle fracture status post ORIF of the right ankle 2. Right ankle cellulitis completed antibiotics with Keflex 3. Diabetes mellitus type 2: Previous A1c 5.4. She is currently on NovoLog sliding scale coverage. Recently had taken off of her Levemir on last admission. Blood sugar stable 4. Hypothyroidism 5. Essential hypertension: Blood pressure stable resume home meds 6. Stage IV lung cancer status post radiation treatment 2 years ago[address] Follow[address] by Dr. Smith 7. 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 Followed by Dr. Smith. Patient is to continue iron supplement. Hemoglobin 8.6 at discharge. Check CBC in 1 week 8. 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 Chronic kidney disease stage IIIB. Creatinine at baseline 10. History of cervical spine fusion. Continue c-collar Patient is medically stable for discharge to [facility] of Dr. March to follow at [facility] I performed an examination of the patient and discussed their management with the physician [employer]ero[employer] Technician. I have reviewed the Physician Gameroom Technician's notes and agree with the documented findings and plan of care
[2017-08-15 11:39] LABS: Glucose,Whole Blood 189 mg/dL (75-99)
[2017-08-15] MEDS ORDERED: ERGOCALCIFEROL 50,000 UNIT CAP PO SCH (12:00)
[2017-08-15] MEDS: SODIUM CHLORIDE 0.9% 1,000 ML IV SCH (13:15)
[2017-08-15 15:10] VITALS: BP 102/66; PULSE 67; RESP 16; TEMP 98.7
== END 2017-08-15 15:50 | DRG 493 ==
LOC: EDSTATUS 15:39 → 3SUR 15:50 → OBSVTOIN 08-14 14:41
PROVIDERS: ADMIT Orthopaedic Surgery; ATTEND Orthopaedic Surgery
PROC: 0QSG04Z Reposition Right Tibia with Internal Fixation Device, Open Approach (ICD-10-PCS; 2017-08-12)
PROC: 0QSJ04Z Reposition Right Fibula with Internal Fixation Device, Open Approach (ICD-10-PCS; principal; 2017-08-12 07:30)
DX: S82.851A Displaced trimalleolar fracture of right lower leg, initial encounter for closed fracture (principal); I13.0 Hypertensive heart and chronic kidney disease with heart failure and stage 1 through stage 4 chronic kidney disease, or unspecified chronic kidney disease; D69.59 Other secondary thrombocytopenia; E11.22 Type 2 diabetes mellitus with diabetic chronic kidney disease; E11.42 Type 2 diabetes mellitus with diabetic polyneuropathy; I50.9 Heart failure, unspecified; N18.3 Chronic kidney disease, stage 3 (moderate); I05.0 Rheumatic mitral stenosis; D63.8 Anemia in other chronic diseases classified elsewhere; E03.9 Hypothyroidism, unspecified; F03.90 Unspecified dementia, unspecified severity, without behavioral disturbance, psychotic disturbance, mood disturbance, and anxiety; F32.9 Major depressive disorder, single episode, unspecified; F41.9 Anxiety disorder, unspecified; G25.81 Restless legs syndrome; J44.9 Chronic obstructive pulmonary disease, unspecified; K29.50 Unspecified chronic gastritis without bleeding; M85.80 Other specified disorders of bone density and structure, unspecified site; E55.9 Vitamin D deficiency, unspecified; I45.81 Long QT syndrome; K44.9 Diaphragmatic hernia without obstruction or gangrene; I71.4 Abdominal aortic aneurysm, without rupture; R39.15 Urgency of urination; R32 Unspecified urinary incontinence; D75.89 Other specified diseases of blood and blood-forming organs; K21.0 Gastro-esophageal reflux disease with esophagitis; Z79.899 Other long term (current) drug therapy; Z79.82 Long term (current) use of aspirin; Z85.118 Personal history of other malignant neoplasm of bronchus and lung; Z87.891 Personal history of nicotine dependence; Z98.1 Arthrodesis status; Z91.048 Other nonmedicinal substance allergy status; W19.XXXA Unspecified fall, initial encounter; Y92.009 Unspecified place in unspecified non-institutional (private) residence as the place of occurrence of the external cause
CPT/HCPCS: 71045; 80048; 80053; 82272; 82306; 85025; 85610; 93005; 94640

== ENCOUNTER → 2017-08-24 | Outpatient (CLI) | payer MEDICARE ==
--- NOTE | 2017-08-24 15:48 | XR ---
EXAMINATION TYPE: XR cervical spine limited DATE OF EXAM: 08/24/2017 COMPARISON: NONE HISTORY: 81-year-old female status post ACDF, postoperative evaluation TECHNIQUE: 3 views FINDINGS: Images show placement of C2-C3 ACDF. Facet and uncovertebral joint arthropathy throughout as well as multilevel degenerative disc disease. Alignment is maintained down to the C6 level. C6-C7 and below i s obscured by the patient's shoulders and not assessed. No gross abnormality on the odontoid view tho ugh it is limited. IMPRESSION: Multilevel moderate spondylotic change with C2-C3 ACDF. The C6-C7 and C7-T1 levels are obscured by th e patient's shoulders and not assessed.
== END | disposition home or self-care (01) ==
LOC: RADXRMAIN 15:23
PROVIDERS: ATTEND Neurological Surgery
DX: Z01.818 Encounter for other preprocedural examination (principal); Z98.1 Arthrodesis status
CPT/HCPCS: 72040

== ENCOUNTER 2017-08-26 11:56 | Day surgery (SDC) | payer MEDICARE ==
[2017-08-24 13:50] VITALS: BMI 34.7
[~2017-08-26 11:56] MED LIST changes: +DEXAMETHASONE SOD PHOSPHATE 10 MG/ML 1 ML VIAL IV ONE; -HYDROmorphone 0.5 MG/0.5 ML SYRINGE IVP PRN; +MIDAZOLAM 2 MG/2 ML VIAL IV PRN; +MORPHINE SULFATE 4 MG/ML SYRINGE IV PRN
[2017-08-26 12:31] LABS: Glucose,Whole Blood 122 mg/dL (75-99)
[2017-08-26] MEDS: LACTATED RINGERS 1,000 ML IV SCH (12:32)
[2017-08-26] MEDS ORDERED: LIDOCAINE 1% 20 ML VIAL (10MG/ML) FOR IV START INTRADERMA ONE (12:35)
[2017-08-26] MEDS ORDERED: NALOXONE 0.4 MG/ML 1 ML VIAL IV PRN (14:09)
[2017-08-26] MEDS ORDERED: ONDANSETRON 4 MG/2 ML VIAL IVP PRN (14:09)
[2017-08-26] MEDS ORDERED: DIAZEPAM 5 MG TAB PO PRN ×2 (14:09)
[2017-08-26] MEDS ORDERED: MAGNESIUM HYDROXIDE 2,400 MG/10 ML CUP PO PRN (14:09)
[2017-08-26] MEDS ORDERED: HYDROmorphone 2 MG/ML 1 ML SYRINGE IVP PRN ×3 (14:09)
[2017-08-26] MEDS ORDERED: PROPOFOL 10 MG/ML 20 ML VIAL IV ONE (14:13)
[2017-08-26] MEDS ORDERED: SUCCINYLCHOLINE CHLORIDE 100 MG/5 ML SYR IV ONE (14:13)
[2017-08-26] MEDS ORDERED: fentaNYL (PF) 50 MCG/ML 2 ML AMP ONE (14:13)
[2017-08-26] MEDS ORDERED: LIDOCAINE 1% INJ 10MG/ML (20 ML MDV) ONE (14:13)
[2017-08-26] MEDS ORDERED: SODIUM CHLORIDE 0.9% 50 ML with ceFAZolin 2,000 MG IV ONE ×2 (14:13)
[2017-08-26] MEDS ORDERED: LABETALOL 5 MG/ML VIAL MDV ONE (14:13)
[2017-08-26] MEDS ORDERED: PHENYLEPHRINE-0.9% NACL SYG 1 MG/10 ML SYRINGE ONE (14:13)
[2017-08-26] MEDS ORDERED: ePHEDrine SULFATE/0.9% NACL/PF 50 MG/5 ML SYRINGE IV ONE (14:13)
[2017-08-26] MEDS ORDERED: MIDAZOLAM 2 MG/2 ML VIAL ONE (14:13)
[2017-08-26] MEDS ORDERED: HYDROcodone/APAP 7.5-325MG 1 EACH TAB PO PRN (14:19)
[2017-08-26] MEDS ORDERED: ceFAZolin 1,000 MG in SODIUM CHLORIDE 0.9% 1,000 ML IRRIGATION ONE (14:46)
[2017-08-26] MEDS ORDERED: LACTATED RINGERS 1,000 ML IV ONE ×2 (16:33)
--- NOTE | 2017-08-26 16:52 | P.OP ---
Date of Procedure: 08/26/17 Preoperative Diagnosis: 1. Closed right trimalleolar ankle fracture 2. Severe osteoporosis with prior fragility fractures 3. Noncompliance with postoperative instructions 4. COPD 5. Dementia Postoperative Diagnosis: Same Procedure(s) Performed: 1. Open reduction and internal fixation of right triimalleolar ankle fracture with intramedullary TTC fusion audra 2. Removal of deep hardware, right ankle 3. Application of short leg splint by physician Anesthesia: JESSA Surgeon: Otto Lamas Professional Model #1: Tanya Gant Estimated Blood Loss (ml): 25 IV fluids (ml): 600 Pathology: none sent Condition: stable Disposition: PACU Indications for Procedure: The patient is an 81-year-old female with multiple medical problems including COPD and multiple recent fragility fractures. She sustained a fracture dislocation of the right ankle. She underwent several attempts at reduction and needed local wound care until her soft tissue envelope was amenable to surgery. 2 weeks ago she underwent open reduction and internal fixation. She was seen in the office earlier this week for her 2-week postoperative check. At that time she had an obvious deformity of her leg and x-rays showed early failure of her hardware with the plate bent and the talus subluxed out of the ankle mortise. Upon questioning the patient and her daughter state that she has been weightbearing on her right leg and using her right leg to pivot for transfers. I had a lengthy discussion on treatment including observation versus revision surgery. Due to the patient and her family's desire for her to remain active and continue walking they requested revision surgery. My recommendation was to remove the failed hardware and place a TTC fusion audra across the ankle without preparing the joint surfaces. We discussed the orthopedic literature supporting this. We discussed the potential risks and complications of surgery including but not limited to risk of anesthesia, risk of superficial infection, risk of deep infection, risk of delayed wound healing , risk of wound necrosis, risk of fracture nonunion, risk of fracture malunion, risk of intraoperative fracture, risk of postoperative fracture, risk of chronic pain, risk of chronic swelling, risk of DVT, risk of PE, risk of other medical complications and possibly risk of an amputation or . The patient and her family understand her increased risk of having a complication particularly a wound healing issue and possibly needing an amputation. They provided their verbal and written consent to go forward with surgery. Description of Procedure: The patient was identified in preoperative holding and the correct right leg was marked with my initials. I reviewed the consent form with the patient and her family. All their questions were answered. The patient was then brought back to the operating room by anesthesia. She was positioned on the OR table and a general anesthetic and preoperative antibiotics were administered. Once the patient was under anesthesia she was positioned on the OR table and all bony prominences were well-padded. A tourniquet was applied to the proximal aspect of the right leg. A bump was placed under her right side internally rotating the leg to neutral. The left leg was secured to the table with foam and tape. A ramp was placed under the right leg. The right leg was then prepped and draped in the standard sterile fashion. Prior to starting surgery timeout was performed identifying the correct patient, operative extremity, and procedure. The patient's leg was then elevated, the leg was exsanguinated with an Esmarch bandage, and the tourniquet was inflated to 250 mmHg. I began by making an incision over her prior healing incision over the lateral malleolus. Skin incision was taken to the subcutaneous tissue and I dissected down through the subcutaneous tissue down to the bone. The plate was circumferentially exposed and then removed. At this point the ankle was reduced and I placed two 0.0625 K wires peripherally across the ankle joint holding the talus reduced within the ankle mortise on both a lateral and mortise fluoroscopic image. Ankle appeared to be reduced and the ankle was at neutral. I then made a small stab incision on the plantar aspect of the foot and a guidewire was placed up through the plantar surface of the calcaneus, across the talus and into the tibia. The wire was centered on both an AP and lateral view. An opening reamer was then used to gain entry into the tibial canal. The entry guidewire was removed and a long, ball-tipped guidewire was placed up into the tibia. I then sequentially reamed in 0.5 mm increments up to an 11-1/2 mm reamer. A 250 mm a 10 mm TTC fusion audra was dispensed. It was secured to the targeting arm and I verified that the trochars lined up with the slots on the nail. The nail was then gently inserted over the ball-tipped K wire into appropriate position. I then proceeded to place interlocking screws through stab incisions in the distal tibia, calcaneus, and across the subtalar joint. Final fluoroscopic x-rays were taken which showed the talus reduced within the ankle mortise and the hardware and acceptable position. Both wounds were then copiously irrigated. The deep layer over the lateral fibula was closed with a running 0 Vicryl stitch. The deep subcu was reapproximated with 2 -0 Vicryl. The skin was closed with 3-0 nylon horizontal mattress stitches. The incision on the plantar aspect of the heel was closed with 2-0 Vicryl in the deep subcutaneous layer and 3-0 nylon in the skin. All stab incisions from the interlocking screws were closed with 3-0 nylon horizontal mattress stitches. I verified that all instrument, sponge, and sharp counts were correct. The tourniquet was let down for total tourniquet time of 90 minutes. A sterile dressing consisting of Betadine soaked Adaptic, 4 x 4, and web roll was applied. A well-padded bulky Conway splint was then placed with the ankle at neutral. The patient was awoken from her anesthetic, transferred from the OR table to the [facility] and brought to PACU without of the procedure well. Tanya Gant PA-C was required is a skilled information technology assistant for patient positioning, surgical exposure, removal of hardware, reduction of the ankle, placement of hardware, closure of surgical wounds, and application of splint. Plan: The patient is going to be admitted for IV antibiotics, pain control, medicine consultation and therapy. She is going to discharge home with her daughter once her pain is controlled, she passes physical therapy and she is cleared from a medical point of view.
[2017-08-26] MEDS: SODIUM CHLORIDE 0.9% 1,000 ML IV SCH (17:23)
[2017-08-26 18:47] LABS: Anisocytosis Slight; Basophils % (A) 0 %; Eosinophils % (A) 1 %; HCT 31.8 % (34.0-46.0); HGB 9.9 gm/dL (11.4-16.0); Hypochromasia Moderate; Lymphocytes # (A) 0.9 k/uL (1.0-4.8); Lymphocytes % (A) 14 %; MCH 30.4 pg (25.0-35.0); MCV 97.9 fL (80.0-100.0); Macrocytosis Slight; Mean Platelet Volume 9.3; Monocytes # (A) 0.1 k/uL (0-1.0); Monocytes % (A) 1 %; Neutrophils # (A) 5.6 k/uL (1.3-7.7); Neutrophils % (A) 84 %; Platelet Count 128 k/uL (150-450); Poikilocytosis Slight; RBC 3.25 m/uL (3.80-5.40); RDW 16.2 % (11.5-15.5); WBC 6.7 k/uL (3.8-10.6)
[2017-08-26] MEDS: HYDROcodone/APAP 7.5-325MG 1 EACH TAB PO PRN (18:59)
[2017-08-26] MEDS ORDERED: IPRATROPIUM-ALBUTEROL 3 ML NEB INHALATION PRN (19:00)
[2017-08-26 19:59] LABS: Glucose,Whole Blood 204 mg/dL (75-99)
[2017-08-26] MEDS: FERROUS SULFATE 325 MG TAB PO SCH (20:57)
[2017-08-26] MEDS: ASPIRIN 325 MG TAB PO SCH (20:57)
[2017-08-26] MEDS: INSULIN ASPART 100 UNIT/ML 1 ML 10 ML VIAL SQ SCH (20:57)
[2017-08-26] MEDS: lamoTRIgine 25 MG TAB PO SCH (20:57)
[2017-08-26] MEDS: CALCIUM CARBONATE 500 MG CHEWABLE PO SCH (20:57)
[2017-08-26] MEDS: LATANOPROST 0.005% OPHTH DROPS 2.5 ML BTL BOTH EYES SCH (20:58)
[2017-08-26] MEDS: SENNOSIDES-DOCUSATE SODIUM 1 EACH TAB PO SCH (20:58)
[2017-08-26] MEDS ORDERED: OSELTAMIVIR PHOSPHATE 30 MG PO SCH (21:00)
[2017-08-26] MEDS: SULFAMETHOX-TMP 800-160MG 1 EACH TAB PO SCH (21:10)
[2017-08-26] MEDS: ceFAZolin IN SWFI 2 GM/20 ML SYRINGE IVP SCH (21:11)
[2017-08-27 03:52] LABS: Hemoglobin A1C 5.3 % (4.0-6.0)
[2017-08-27] MEDS: ceFAZolin IN SWFI 2 GM/20 ML SYRINGE IVP SCH (05:38)
[2017-08-27] MEDS: LACTATED RINGERS 1,000 ML IV SCH (05:44)
[2017-08-27] MEDS: SODIUM CHLORIDE 0.9% 1,000 ML IV SCH ×2 (05:45→21:28)
[2017-08-27] MEDS: LEVOTHYROXINE 75 MCG TAB PO SCH (05:46)
[2017-08-27 06:56] LABS: Glucose,Whole Blood 139 mg/dL (75-99)
[2017-08-27] MEDS: INSULIN ASPART 100 UNIT/ML 1 ML 10 ML VIAL SQ SCH ×4 (08:26→21:27)
[2017-08-27] MEDS: FERROUS SULFATE 325 MG TAB PO SCH ×2 (08:39→21:27)
[2017-08-27] MEDS: LISINOPRIL 10 MG TAB PO SCH (08:40)
[2017-08-27] MEDS: ASPIRIN 325 MG TAB PO SCH ×2 (08:40→21:27)
[2017-08-27] MEDS: SERTRALINE 100 MG TAB PO SCH (08:40)
[2017-08-27] MEDS: PANTOPRAZOLE 40 MG TABLET PO SCH (08:40)
[2017-08-27] MEDS: HYDROCORTISONE 10 MG TAB PO SCH (08:40)
[2017-08-27] MEDS: FUROSEMIDE 40 MG TAB PO SCH (08:40)
[2017-08-27] MEDS: METOPROLOL TARTRATE 25 MG TAB PO SCH (08:40)
[2017-08-27] MEDS: SULFAMETHOX-TMP 800-160MG 1 EACH TAB PO SCH ×2 (08:40→21:28)
--- NOTE | 2017-08-27 09:18 | P.PN ---
Subjective Progress Note Date: 08/27/17 the patient is doing well this morning. She has mild pain in her ankle which is controlled with her current pain regimen. According to nursing she is having some confusion. She is otherwise doing well. Objective - Vital Signs Vital signs: Vital Signs Temp 98.7 F 08/27/17 07:00 Pulse 90 08/27/17 07:00 Resp 16 08/27/17 07:00 BP 144/69 08/27/17 07:00 Pulse Ox 100 08/27/17 07:00 Intake & Output 08/26/17 08/27/17 08/27/17 18:59 06:59 18:59 Intake Total 1151 947.5 600 Output Total 25 Balance 1126 947.5 600 Weight 88.904 kg Intake: IV 1151 Intake, IV Titration 747.5 Amount Sodium Chloride 0.9% 1, 747.5 000 ml @ 65 mls/hr IV . [id number] SEEMA Rx#:[id number] Oral 200 600 Output: Estimated Blood Loss 25 Other: Voiding Method Bedpan Diaper # Voids 2 - Exam A focused examination of the right lower extremity was conducted. On inspection there is a clean-appearing bulky Conway splint with no saturated bleeding or drainage. The tips of her toes are warm and well perfused and have brisk capillary refill. There is no pain with passive range of motion of the toes. Sensation is intact to light touch and she is able to actively plantarflex and dorsiflex her toes. - Labs CBC & Chem 7: 08/26/17 18:32 Labs: Abnormal Lab Results - Last 24 Hours (Table) 08/26/17 08/26/17 08/26/17 Range/Units 12:29 18:32 19:39 RBC 3.25 L (3.80-5.40) m/uL Hgb 9.9 L (11.4-16.0) gm/dL Hct 31.8 L (34.0-46.0) % RDW 16.2 H (11.5-15.5) % Plt Count 128 L (150-450) k/uL Lymphocytes # 0.9 L (1.0-4.8) k/uL POC Glucose (mg/dL) 122 H 204 H (75-99) mg/dL 08/27/17 Range/Units 06:54 RBC (3.80-5.40) m/uL Hgb (11.4-16.0) gm/dL Hct (34.0-46.0) % RDW (11.5-15.5) % Plt Count (150-450) k/uL Lymphocytes # (1.0-4.8) k/uL POC Glucose (mg/dL) 139 H (75-99) mg/dL Assessment and Plan (1) Trimalleolar fracture of ankle, closed Current Visit: No Status: Acute Priority: Medium Code(s): S82.853A - DISPLACED TRIMALLEOLAR FRACTURE OF UNSP LOWER LEG, INIT SNOMED Code(s): 4981775 Plan: postoperative day #1 status post hardware removal right ankle and operative treatment of trimalleolar ankle fracture with retrograde TTC nail. 1. Strict nonweightbearing operative lower extremity, keep splint in place 2. 2 doses of IV postoperative antibiotics, we'll keep the patient on Bactrim double strength twice a day for 2 weeks as a precaution 3. DVT prophylaxis with Lovenox while in-house 4. Physical therapy for mobilization and gait training 5. Have asked nursing to contact the patient's neurosurgeon regarding recommendations for her cervical spine collar 6. The patient and her family would like her to be discharged home under the care of her daughter. I will defer to social work in physical therapy regarding whether or not they feel this is in the patient's best interest versus returning the patient to a rehab facility or [facility].
[2017-08-27] MEDS: ENOXAPARIN 40 MG/0.4 ML SYRINGE SQ SCH (09:46)
[2017-08-27 11:08] LABS: Glucose,Whole Blood 138 mg/dL (75-99)
[2017-08-27] MEDS: VIT A,C & E-LUTEIN-MINERALS 1 EACH TAB PO SCH ×2 (12:43→13:08)
[2017-08-27] MEDS ORDERED: SODIUM CHLORIDE 0.9% 500 ML IV ONE (15:20)
--- NOTE | 2017-08-27 16:07 | FL ---
Fluoroscopy INDICATION: Pain, trimalleolar fracture FINDINGS: Fluoroscopy time: 1 minute 8 seconds. Images obtained: 7. IMPRESSIONS: 1. Documentation of fluoroscopy.
[2017-08-27 17:45] LABS: Glucose,Whole Blood 106 mg/dL (75-99)
[2017-08-27 19:46] LABS: Glucose,Whole Blood 189 mg/dL (75-99)
[2017-08-27] MEDS: HYDROcodone/APAP 7.5-325MG 1 EACH TAB PO PRN (21:26)
[2017-08-27] MEDS: lamoTRIgine 25 MG TAB PO SCH (21:27)
[2017-08-27] MEDS: CALCIUM CARBONATE 500 MG CHEWABLE PO SCH (21:27)
[2017-08-27] MEDS: LATANOPROST 0.005% OPHTH DROPS 2.5 ML BTL BOTH EYES SCH (21:28)
[2017-08-27] MEDS: SENNOSIDES-DOCUSATE SODIUM 1 EACH TAB PO SCH (21:29)
[2017-08-28] MEDS ORDERED: FUROSEMIDE 40 MG TAB ONE (05:14)
[2017-08-28] MEDS: LEVOTHYROXINE 75 MCG TAB PO SCH (05:14)
[2017-08-28] MEDS ORDERED: LISINOPRIL 10 MG TAB ONE (05:14)
[2017-08-28] MEDS ORDERED: LEVOTHYROXINE 75 MCG TAB ONE (05:14)
[2017-08-28] MEDS ORDERED: SERTRALINE 100 MG TAB ONE (05:14)
[2017-08-28] MEDS ORDERED: PANTOPRAZOLE 40 MG TABLET PO ONE (05:14)
[2017-08-28] MEDS ORDERED: HYDROCORTISONE 10 MG TAB ONE (05:14)
[2017-08-28] MEDS ORDERED: HYDROcodone/APAP 7.5-325MG 1 EACH TAB ONE (05:14)
[2017-08-28] MEDS ORDERED: VIT A,C & E-LUTEIN-MINERALS 1 EACH TAB ONE (05:14)
[2017-08-28] MEDS ORDERED: SENNOSIDES-DOCUSATE SODIUM 1 EACH TAB PO ONE (05:14)
[2017-08-28] MEDS ORDERED: CALCIUM CARBONATE 500 MG CHEWABLE PO ONE ×2 (05:14)
[2017-08-28] MEDS ORDERED: SULFAMETHOX-TMP 800-160MG 1 EACH TAB ONE ×2 (05:14)
[2017-08-28] MEDS ORDERED: lamoTRIgine 25 MG TAB ONE ×2 (05:14)
[2017-08-28] MEDS ORDERED: ENOXAPARIN 40 MG/0.4 ML SYRINGE SQ ONE (05:14)
[2017-08-28] MEDS ORDERED: FERROUS SULFATE 325 MG TAB PO ONE ×3 (05:14)
[2017-08-28] MEDS ORDERED: METOPROLOL TARTRATE 25 MG TAB ONE (05:14)
[2017-08-28] MEDS ORDERED: INSULIN ASPART 100 UNIT/ML 1 ML 10 ML VIAL SQ ONE ×3 (05:14)
[2017-08-28] MEDS ORDERED: ASPIRIN 325 MG TAB ONE ×2 (05:14)
[2017-08-28] MEDS: LACTATED RINGERS 1,000 ML IV SCH (05:21)
[2017-08-28 07:03] LABS: Glucose,Whole Blood 116 mg/dL (75-99)
[2017-08-28 07:11] LABS: Anisocytosis Slight; Basophils % (A) 1 %; Eosinophils # (A) 0.2 k/uL (0-0.7); Eosinophils % (A) 4 %; HCT 28.7 % (34.0-46.0); HGB 8.7 gm/dL (11.4-16.0); Hypochromasia Moderate; Lymphocytes # (A) 1.4 k/uL (1.0-4.8); Lymphocytes % (A) 31 %; MCH 30.1 pg (25.0-35.0); MCHC 30.4 g/dL (31.0-37.0); Macrocytosis Slight; Monocytes # (A) 0.3 k/uL (0-1.0); Monocytes % (A) 7 %; Neutrophils # (A) 2.6 k/uL (1.3-7.7); Neutrophils % (A) 56 %; Platelet Count 107 k/uL (150-450); RDW 16.2 % (11.5-15.5); WBC 4.6 k/uL (3.8-10.6)
[2017-08-28] MEDS: INSULIN ASPART 100 UNIT/ML 1 ML 10 ML VIAL SQ SCH ×4 (08:36→21:49)
[2017-08-28] MEDS: ENOXAPARIN 40 MG/0.4 ML SYRINGE SQ SCH (08:37)
[2017-08-28] MEDS: PANTOPRAZOLE 40 MG TABLET PO SCH (08:38)
[2017-08-28] MEDS: ASPIRIN 325 MG TAB PO SCH ×2 (08:38→21:50)
[2017-08-28] MEDS: FUROSEMIDE 40 MG TAB PO SCH (08:39)
[2017-08-28] MEDS: FERROUS SULFATE 325 MG TAB PO SCH ×2 (08:39→21:50)
[2017-08-28] MEDS: HYDROCORTISONE 10 MG TAB PO SCH (08:39)
[2017-08-28] MEDS: SULFAMETHOX-TMP 800-160MG 1 EACH TAB PO SCH ×2 (08:40→21:50)
[2017-08-28] MEDS: LISINOPRIL 10 MG TAB PO SCH (08:40)
[2017-08-28] MEDS: SERTRALINE 100 MG TAB PO SCH (08:40)
[2017-08-28] MEDS: METOPROLOL TARTRATE 25 MG TAB PO SCH (08:41)
--- NOTE | 2017-08-28 09:25 | P.PN ---
Subjective Progress Note Date: 08/28/17 Principal diagnosis: Right ankle fracture. Status post removal of hardware/ORIF right ankle. This is an 81-year-old female who is status post removal of hardware and open reduction showed fixation of the right ankle. She is stable from an orthopedic standpoint. She has had some slight confusion. Her pain is well controlled. She is rating her pain 0/10 at this time. Objective - Vital Signs Vital signs: Vital Signs Temp 96.3 F L 08/28/17 07:00 Pulse 77 08/28/17 07:00 Resp 16 08/28/17 07:00 BP 149/65 08/28/17 07:00 Pulse Ox 97 08/28/17 07:24 Intake & Output 08/27/17 08/28/17 08/28/17 18:59 06:59 18:59 Intake Total 1440 Balance 1440 Intake: Intake, IV Titration 500 Amount Sodium Chloride 0.9% 500 500 ml @ 999 mls/hr IV .Q31M ONE Rx#:[id number] Oral 940 Other: Voiding Method Bedpan Diaper # Voids 1 1 # Bowel Movements 1 - Exam This is an 81-year-old female in no acute distress. She is alert and oriented at this time. Exam of the right lower extremity reveals that her splint is intact. She has full toe motion without difficulty or pain. She has normal sensation to the toes. Capillary refill is less than 3 seconds. Neurovascular status to the right lower extremity is intact. - Labs CBC & Chem 7: 08/28/17 06:12 Labs: Abnormal Lab Results - Last 24 Hours (Table) 08/27/17 08/27/17 08/27/17 Range/Units 10:52 17:39 19:44 RBC (3.80-5.40) m/uL Hgb (11.4-16.0) gm/dL Hct (34.0-46.0) % MCHC (31.0-37.0) g/dL RDW (11.5-15.5) % Plt Count (150-450) k/uL POC Glucose (mg/dL) 138 H 106 H 189 H (75-99) mg/dL 08/28/17 08/28/17 Range/Units 06:12 06:57 RBC 2.90 L (3.80-5.40) m/uL Hgb 8.7 L (11.4-16.0) gm/dL Hct 28.7 L (34.0-46.0) % MCHC 30.4 L (31.0-37.0) g/dL RDW 16.2 H (11.5-15.5) % Plt Count 107 L (150-450) k/uL POC Glucose (mg/dL) 116 H (75-99) mg/dL Assessment and Plan (1) Status post ORIF of fracture of ankle Current Visit: Yes Status: Acute Code(s): Z96.7 - PRESENCE OF OTHER BONE AND TENDON IMPLANTS; Z87.81 - PERSONAL HISTORY OF (HEALED) TRAUMATIC FRACTURE SNOMED Code(s): 877557915 (2) Trimalleolar fracture of ankle, closed Current Visit: No Status: Acute Priority: Medium Code(s): S82.853A - DISPLACED TRIMALLEOLAR FRACTURE OF UNSP LOWER LEG, INIT SNOMED Code(s): 8228473 Plan: The clinical findings are discussed with the patient and her nurse. We are planning discharge to home versus rehab tomorrow.
[2017-08-28 11:32] LABS: Glucose,Whole Blood 185 mg/dL (75-99)
[2017-08-28] MEDS: VIT A,C & E-LUTEIN-MINERALS 1 EACH TAB PO SCH (11:44)
--- NOTE | 2017-08-28 12:22 | P.CONS ---
History of Present Illness - Reason for Consult Consult date: 08/28/17 medical management - History of Present Illness patient has a history of right ankle fracture status post ORIF now admitted for removal of deep hardware. Patient is postoperative day #2. She is doing well. No complaints or concerns. I was asked to see her for medical management. Review of Systems Review of system: 14 points review of systems were obtained and were negative except to what were mentioned in the HPI. Past Medical History Past Medical History: Cancer, Heart Failure, COPD, Diabetes Mellitus, GERD/ Reflux, Hypertension, Pneumonia, Thyroid Disorder Additional Past Medical History / Comment(s): currently diet control diabetic. on tamilfu prophylactic at [facility], lung cancer x 2-tx with radiation, has splint on rt ankle-non wt bearing, Oxygen at 2 Liters PRN., Hiatal Hernia, Back Pain, Bruises easily , Anemia- hx of blood transfusions (last April 2016), Abd Aneurysm. diarrhea, renal gland insuffeciency, neuropathy, vit D deficiency, restless leg syndrome, fx ribs from September 2016. on NECTAR THICK LIQUIDS, puree diet, AND CRUSH THE CRUSHABLE MEDS AND PUT IN APPLESAUCE- due to neck/throat issues from neck surgery 07/07/17. "not supposed to move neck much" per duaghter /WEARING NECK BRACE, HAS URGENCY AND OCC INCONTINENCE OF URINE-WERARS BRIEF. History of Any Multi-Drug Resistant Organisms: None Reported Past Surgical History: Section, Orthopedic Surgery Additional Past Surgical History / Comment(s): esme cataracts., left shoulder-pin , neck surgery with "basket" 07/07/17(has brace on neck), ORIF rt ankle 08/12/17 Past Anesthesia/Blood Transfusion Reactions: Previous Problems w/ Anesthesia, Blood Transfusion Reaction Additional Past Anesthesia/Blood Transfusion Reaction / Comm: neck surgery 07/07 at [facility]-diff swallowing since'"swollen throat", has neck brace on and "not supposed to move her neck much" per daughter. Hx of blood transfusions - Daughter states that Keerthi has an Antibody and makes it difficult to match., last transfusion Apr 2016 she broke out in a rash a couple days later, 08/12/17 had OR at [facility] with spinal anesthesia-no problems per daughter-does get delusions post op Past Psychological History: Anxiety, Depression Additional Psychological History / Comment(s): mild dementia-signs own consents per daughter Akilah Smoking Status: Former smoker Past Alcohol Use History: None Reported Additional Past Alcohol Use History / Comment(s): Smoked 3 ppd, Quit smoking 1972. Smoked for 30 yrs. Past Drug Use History: None Reported - Past Family History Sister(s) Family Medical History: Cancer, Deep Vein Thrombosis (DVT) Additional Family Medical History / Comment(s): SISTER #1 BREAST CANCER. SISTER #2 FEMALE CANCER Daughter(s) Family Medical History: Cancer Additional Family Medical History / Comment(s): . Medications and Allergies Home Medications Medication Instructions Recorded Confirmed Type Hydrocortisone [Cortef] 10 mg PO DAILY 04/14/16 08/26/17 History Vits A,C,E/Lutein/Minerals 1 tab PO DAILY 04/14/16 08/26/17 History [Ocuvite with Lutein Tablet] Ergocalciferol [Vitamin D2 50,000 unit PO MO 06/28/16 08/26/17 History (DRISDOL)] Latanoprost Ophth [Xalatan 0.005%] 1 drops BOTH EYES HS 06/28/16 08/26/17 History Omeprazole [PriLOSEC] 20 mg PO DAILY 06/28/16 08/26/17 History Sertraline [Zoloft] 100 mg PO DAILY 06/28/16 08/26/17 History lamoTRIgine [LaMICtal] 150 mg PO HS 06/28/16 08/26/17 History Calcium Carbonate [Calcium] 600 mg PO HS 07/14/17 08/26/17 History Ferrous Sulfate [Iron (65 MG 325 mg PO BID 07/14/17 08/26/17 History Elemental)] Levothyroxine Sodium [Synthroid] 150 mcg PO DAILY 07/14/17 08/26/17 History Furosemide [Lasix] 40 mg PO DAILY tab 07/19/17 08/26/17 Rx Lisinopril [Prinivil] 10 mg PO DAILY #30 tab 07/19/17 08/26/17 Rx rOPINIRole HCL [Requip] 1 mg PO HS #0 07/19/17 08/26/17 Rx Ipratropium-Albuterol Nebulize 3 ml INHALATION RT-QID PRN 08/01/17 08/26/17 History [Duoneb 0.5 mg-3 mg/3 ml Soln] Metoprolol Tartrate [Lopressor] 25 mg PO DAILY 08/01/17 08/26/17 History Aspirin 325 mg PO BID #60 tab 08/14/17 08/26/17 Rx HYDROcodone/APAP 5-325MG [[place] 1 - 2 each PO Q4-6H PRN #90 tab 08/14/17 Rx 5-325] Oseltamivir Phosphate [Tamiflu] 30 mg PO HS 08/24/17 08/26/17 History Allergies Allergy/AdvReac Type Severity Reaction Status Date / Time adhesive Allergy peels skin Verified 08/26/17 12:21 off acetaminophen AdvReac wakes her Verified 08/26/17 12:21 [From Tylenol PM] up diphenhydramine AdvReac wakes her Verified 08/26/17 12:21 [From Tylenol PM] up Physical Exam Vitals: Vital Signs Temp Pulse Resp BP Pulse Ox 08/28/17 07:24 97 08/28/17 07:00 96.3 F L 77 16 149/65 100 08/28/17 01:00 97.5 F L 69 15 113/55 92 L 08/27/17 20:00 98.1 F 77 18 122/71 93 L 08/27/17 16:02 100/56 08/27/17 14:40 97.9 F 64 18 79/41 95 Intake and Output 08/27/17 08/28/17 08/28/17 22:59 06:59 14:59 Intake Total 240 240 Balance 240 240 Intake: Oral 240 240 Other: Voiding Method Bedpan Diaper # Voids 1 1 # Bowel Movements 1 General: The patient is awake and alert, in no distress Eye: there is normal conjunctiva bilaterally. Neck: c-collar in place Cardiovascular: Normal S1-S2, no S3-S4, no murmurs. Respiratory: Lungs clear to auscultation bilaterally Gastrointestinal: Abdomen is soft, nontender Musculoskeletal: large splint the right ankle Neurological:. Speech is normal. Skin: Skin is warm and dry Results CBC & Chem 7: 08/28/17 06:12 Labs: Abnormal Lab Results - Last 24 Hours (Table) 08/27/17 08/27/17 08/28/17 Range/Units 17:39 19:44 06:12 RBC 2.90 L (3.80-5.40) m/uL Hgb 8.7 L (11.4-16.0) gm/dL Hct 28.7 L (34.0-46.0) % MCHC 30.4 L (31.0-37.0) g/dL RDW 16.2 H (11.5-15.5) % Plt Count 107 L (150-450) k/uL POC Glucose (mg/dL) 106 H 189 H (75-99) mg/dL 08/28/17 08/28/17 Range/Units 06:57 11:19 RBC (3.80-5.40) m/uL Hgb (11.4-16.0) gm/dL Hct (34.0-46.0) % MCHC (31.0-37.0) g/dL RDW (11.5-15.5) % Plt Count (150-450) k/uL POC Glucose (mg/dL) 116 H 185 H (75-99) mg/dL Assessment and Plan Assessment: 1. Right ankle fracture. status post ORIF with removal of deep hardware and large splint application 2. History of cervical spine fusion. Continue c-collar 3. Diabetes mellitus type 2: Previous A1c 5.4. 4. Hypothyroidism 5. Essential hypertension: Blood pressure stable resume home meds 6. Stage IV lung cancer status post radiation treatment 2 years ago[address] Follow[address] by Dr. Smith 7. 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 Followed by Dr. Smith. Patient is to continue iron supplement. Hemoglobin 9.4 8. 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 Chronic kidney disease stage IIIB. Creatinine at baseline
[2017-08-28] MEDS: SODIUM CHLORIDE 0.9% 1,000 ML IV SCH (13:29)
[2017-08-28] MEDS: HYDROcodone/APAP 7.5-325MG 1 EACH TAB PO PRN (17:23)
[2017-08-28 17:29] LABS: Glucose,Whole Blood 115 mg/dL (75-99)
[2017-08-28 19:58] LABS: Glucose,Whole Blood 149 mg/dL (75-99)
[2017-08-28] MEDS: LATANOPROST 0.005% OPHTH DROPS 2.5 ML BTL BOTH EYES SCH (21:49)
[2017-08-28] MEDS: lamoTRIgine 25 MG TAB PO SCH (21:49)
[2017-08-28] MEDS: CALCIUM CARBONATE 500 MG CHEWABLE PO SCH (21:50)
[2017-08-28] MEDS: SENNOSIDES-DOCUSATE SODIUM 1 EACH TAB PO SCH (21:53)
[2017-08-29 01:51] VITALS: RESP 16
[2017-08-29] MEDS: SODIUM CHLORIDE 0.9% 1,000 ML IV SCH (04:28)
[2017-08-29] MEDS: LACTATED RINGERS 1,000 ML IV SCH (04:37)
[2017-08-29] MEDS: LEVOTHYROXINE 75 MCG TAB PO SCH (07:17)
[2017-08-29 07:28] LABS: Glucose,Whole Blood 106 mg/dL (75-99)
[2017-08-29] MEDS: INSULIN ASPART 100 UNIT/ML 1 ML 10 ML VIAL SQ SCH (07:53)
[2017-08-29 08:10] VITALS: BP 148/55; PULSE 82; TEMP 98.3
[2017-08-29] MEDS: PANTOPRAZOLE 40 MG TABLET PO SCH (08:24)
[2017-08-29] MEDS: ASPIRIN 325 MG TAB PO SCH (08:24)
[2017-08-29] MEDS: ENOXAPARIN 40 MG/0.4 ML SYRINGE SQ SCH (08:25)
[2017-08-29] MEDS: FERROUS SULFATE 325 MG TAB PO SCH (08:25)
[2017-08-29] MEDS: FUROSEMIDE 40 MG TAB PO SCH (08:25)
[2017-08-29] MEDS: LISINOPRIL 10 MG TAB PO SCH (08:26)
[2017-08-29] MEDS: HYDROCORTISONE 10 MG TAB PO SCH (08:26)
[2017-08-29] MEDS: METOPROLOL TARTRATE 25 MG TAB PO SCH (08:26)
[2017-08-29] MEDS: SERTRALINE 100 MG TAB PO SCH (08:27)
[2017-08-29] MEDS: SULFAMETHOX-TMP 800-160MG 1 EACH TAB PO SCH (08:27)
[2017-08-29] MEDS: VIT A,C & E-LUTEIN-MINERALS 1 EACH TAB PO SCH (08:27)
[2017-08-29 09:30] LABS: Anisocytosis Slight; Basophils % (A) 0 %; Eosinophils # (A) 0.3 k/uL (0-0.7); Eosinophils % (A) 5 %; HGB 8.6 gm/dL (11.4-16.0); Hypochromasia Moderate; Lymphocytes # (A) 1.2 k/uL (1.0-4.8); Lymphocytes % (A) 23 %; MCH 30.3 pg (25.0-35.0); MCHC 30.6 g/dL (31.0-37.0); MCV 98.9 fL (80.0-100.0); Macrocytosis Slight; Mean Platelet Volume 7.9; Monocytes # (A) 0.3 k/uL (0-1.0); Monocytes % (A) 5 %; Neutrophils # (A) 3.4 k/uL (1.3-7.7); Neutrophils % (A) 65 %; Platelet Count 123 k/uL (150-450); RBC 2.83 m/uL (3.80-5.40); WBC 5.2 k/uL (3.8-10.6)
[2017-08-29 09:44] LABS: Calcium 8.4 mg/dL (8.4-10.2); Potassium 4.3 mmol/L (3.5-5.1)
--- NOTE | 2017-08-29 09:55 | P.DS ---
Providers Date of admission: 08/26/17 Expected date of discharge: 08/29/17 Attending physician: Otto Lamas Consults: 08/26/17 14:09 Consult Physician Routine Consulting Provider: Ok March Consult Reason/Comments: medical management Do you want consulting provider notified?: Yes Primary care physician: Kady Hudson - Discharge Diagnosis(es) (1) Status post ORIF of fracture of ankle Patient was admitted to the OR on 08/26/17 to undergo open reduction and internal fixation of right triimalleolar ankle fracture with intramedullary TTC fusion audra. She had failed previous surgery and conservative measures as an outpatient and desired to proceed with elective surgery after given informed consent. She underwent the above procedure which he tolerated well without complication. Postoperative hospital course has remained without complication. On day of discharge she is afebrile, vital signs stable, labs within acceptable ranges, tolerating by mouth meds and diet, voiding without difficulty , positive flatus, denies abdominal pain or calf pain, pain is controlled on oral pain medication and has no new complaints. Wound is benign, neurovascular status is intact, calf is soft and nontender, abdomen soft and nontender. Review of systems is negative for numbness, tingling, fever, chills, chest pain , shortness breath, nausea, vomiting, dizziness, headaches, slurred speech or other. Current Visit: Yes Status: Acute Priority: Medium Procedures: Open reduction and internal fixation of right triimalleolar ankle fracture with intramedullary TTC fusion audra Patient Condition at Discharge: Fair Plan - Discharge Summary Discharge Rx Participant: No New Discharge Prescriptions: No Action Vits A,C,E/Lutein/Minerals [Ocuvite with Lutein Tablet] 1 tab PO DAILY Hydrocortisone [Cortef] 10 mg PO DAILY Sertraline [Zoloft] 100 mg PO DAILY lamoTRIgine [LaMICtal] 150 mg PO HS Omeprazole [PriLOSEC] 20 mg PO DAILY Latanoprost Ophth [Xalatan 0.005%] 1 drops BOTH EYES HS Ergocalciferol [Vitamin D2 (DRISDOL)] 50,000 unit PO MO Ferrous Sulfate [Iron (65 MG Elemental)] 325 mg PO BID Levothyroxine Sodium [Synthroid] 150 mcg PO DAILY Calcium Carbonate [Calcium] 600 mg PO HS Furosemide [Lasix] 40 mg PO DAILY tab Lisinopril [Prinivil] 10 mg PO DAILY #30 tab rOPINIRole HCL [Requip] 1 mg PO HS #0 Ipratropium-Albuterol Nebulize [Duoneb 0.5 mg-3 mg/3 ml Soln] 3 ml INHALATION RT-QID PRN PRN Reason: Wheezing Metoprolol Tartrate [Lopressor] 25 mg PO DAILY Aspirin 325 mg PO BID #60 tab HYDROcodone/APAP 5-325MG [[place] 5-325] 1 - 2 each PO Q4-6H PRN #90 tab PRN Reason: Pain Oseltamivir Phosphate [Tamiflu] 30 mg PO HS Discharge Medication List Hydrocortisone [Cortef] 10 mg PO DAILY 04/14/16 [History] Vits A,C,E/Lutein/Minerals [Ocuvite with Lutein Tablet] 1 tab PO DAILY 04/14/16 [History] Ergocalciferol [Vitamin D2 (DRISDOL)] 50,000 unit PO MO 06/28/16 [History] Latanoprost Ophth [Xalatan 0.005%] 1 drops BOTH EYES HS 06/28/16 [History] Omeprazole [PriLOSEC] 20 mg PO DAILY 06/28/16 [History] Sertraline [Zoloft] 100 mg PO DAILY 06/28/16 [History] lamoTRIgine [LaMICtal] 150 mg PO HS 06/28/16 [History] Calcium Carbonate [Calcium] 600 mg PO HS 07/14/17 [History] Ferrous Sulfate [Iron (65 MG Elemental)] 325 mg PO BID 07/14/17 [History] Levothyroxine Sodium [Synthroid] 150 mcg PO DAILY 07/14/17 [History] Furosemide [Lasix] 40 mg PO DAILY tab 07/19/17 [Rx] Lisinopril [Prinivil] 10 mg PO DAILY #30 tab 07/19/17 [Rx] rOPINIRole HCL [Requip] 1 mg PO HS #0 07/19/17 [Rx] Ipratropium-Albuterol Nebulize [Duoneb 0.5 mg-3 mg/3 ml Soln] 3 ml INHALATION RT -QID PRN 08/01/17 [History] Metoprolol Tartrate [Lopressor] 25 mg PO DAILY 08/01/17 [History] Aspirin 325 mg PO BID #60 tab 08/14/17 [Rx] HYDROcodone/APAP 5-325MG [[place] 5-325] 1 - 2 each PO Q4-6H PRN #90 tab 08/14/17 [Rx] Oseltamivir Phosphate [Tamiflu] 30 mg PO HS 08/24/17 [History] Follow up Appointment(s)/Referral(s): Otto Lamas MD [Medical Doctor] - 2 Weeks Activity/Diet/Wound Care/Special Instructions: nonweightbearing keep leg elevated take meds as directed f/u with Dr. Lamas in office keep splint bandage in place, clean and dry Discharge Disposition: HOME SELF-CARE
--- NOTE | 2017-08-29 10:12 | P.PN ---
Subjective Progress Note Date: 08/29/17 patient has a history of right ankle fracture status post ORIF now admitted for removal of deep hardware. Patient is postoperative day #3. She is doing well. No complaints or concerns. I was asked to see her for medical management. Patient is doing well. Pain is controlled. No medical issues. Patient scheduled for discharge home today Objective - Vital Signs Vital signs: Vital Signs Temp 98.3 F 08/29/17 07:00 Pulse 82 08/29/17 07:00 Resp 16 08/29/17 07:00 BP 148/55 08/29/17 07:00 Pulse Ox 98 08/29/17 07:00 Intake & Output 08/28/17 08/29/17 08/29/17 18:59 06:59 18:59 Intake Total 907.5 Balance 907.5 Intake: Intake, IV Titration 487.5 Amount Sodium Chloride 0.9% 1, 487.5 000 ml @ 65 mls/hr IV . [id number] [facility] Rx#:[id number] Oral 420 Other: Voiding Method Bedpan Bedpan # Voids 1 1 - Exam Head normocephalic Neck supple Lungs clear to auscultation bilaterally no wheezing or crackles Heart regular rate and rhythm S1-S2, no rub or gallop Abdomen is soft nontender nondistended positive bowel sounds no hepatosplenomegaly Extremities no edema Neuro alert and orientated to 3 - Labs CBC & Chem 7: 08/29/17 09:01 08/29/17 09:01 Labs: Abnormal Lab Results - Last 24 Hours (Table) 08/28/17 08/28/17 08/28/17 Range/Units 11:19 17:14 19:42 RBC (3.80-5.40) m/uL Hgb (11.4-16.0) gm/dL Hct (34.0-46.0) % MCHC (31.0-37.0) g/dL RDW (11.5-15.5) % Plt Count (150-450) k/uL BUN (7-17) mg/dL Creatinine (0.52-1.04) mg/dL Glucose (74-99) mg/dL POC Glucose (mg/dL) 185 H 115 H 149 H (75-99) mg/dL 08/29/17 08/29/17 08/29/17 Range/Units 06:59 09:01 09:01 RBC 2.83 L (3.80-5.40) m/uL Hgb 8.6 L (11.4-16.0) gm/dL Hct 28.0 L (34.0-46.0) % MCHC 30.6 L (31.0-37.0) g/dL RDW 16.0 H (11.5-15.5) % Plt Count 123 L (150-450) k/uL BUN 18 H (7-17) mg/dL Creatinine 1.07 H (0.52-1.04) mg/dL Glucose 194 H (74-99) mg/dL POC Glucose (mg/dL) 106 H (75-99) mg/dL Assessment and Plan Assessment: 1. Right ankle fracture. status post ORIF with removal of deep hardware and large splint application 2. History of cervical spine fusion. Continue c-collar 3. Diabetes mellitus type 2: Previous A1c 5.4. 4. Hypothyroidism 5. Essential hypertension: Blood pressure stable resume home meds 6. Stage IV lung cancer status post radiation treatment 2 years ago[address] by Dr[address] Smith 7. 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 Followed by Dr. Smith. Patient is to continue iron supplement. Hemoglobin 9.4 8. 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 Chronic kidney disease stage IIIB. Creatinine at baseline Patient is medically stable for discharge. We'll have her follow-up with her PCP in 1 week. Recommend checking routine blood work CBC and BMP in 1 week I performed an examination of the patient and discussed their management with the physician Couturiere. I have reviewed the Physician Couturiere's notes and agree with the documented findings and plan of care
[2017-08-29] MEDS: HYDROcodone/APAP 7.5-325MG 1 EACH TAB PO PRN (10:55)
[2017-08-29] MEDS ORDERED: ERGOCALCIFEROL 50,000 UNIT CAP PO SCH (19:00)
== END 2017-08-29 11:10 | disposition home health service (06) ==
LOC: OR 11:56 → EDSTATUS 13:30 → 3SUR 16:32 → OR 08-29 11:10
PROVIDERS: ATTEND Orthopaedic Surgery
DX: S82.851A Displaced trimalleolar fracture of right lower leg, initial encounter for closed fracture (principal); T84.126A Displacement of internal fixation device of bone of right lower leg, initial encounter; Z91.19 Patient's noncompliance with other medical treatment and regimen; M81.0 Age-related osteoporosis without current pathological fracture; Z87.310 Personal history of (healed) osteoporosis fracture; J44.9 Chronic obstructive pulmonary disease, unspecified; F03.90 Unspecified dementia, unspecified severity, without behavioral disturbance, psychotic disturbance, mood disturbance, and anxiety; I13.0 Hypertensive heart and chronic kidney disease with heart failure and stage 1 through stage 4 chronic kidney disease, or unspecified chronic kidney disease; I50.9 Heart failure, unspecified; N18.3 Chronic kidney disease, stage 3 (moderate); E11.22 Type 2 diabetes mellitus with diabetic chronic kidney disease; E11.40 Type 2 diabetes mellitus with diabetic neuropathy, unspecified; C34.90 Malignant neoplasm of unspecified part of unspecified bronchus or lung; Z92.3 Personal history of irradiation; K21.9 Gastro-esophageal reflux disease without esophagitis; E03.9 Hypothyroidism, unspecified; H91.90 Unspecified hearing loss, unspecified ear; H40.9 Unspecified glaucoma; F32.9 Major depressive disorder, single episode, unspecified; F41.9 Anxiety disorder, unspecified; D64.9 Anemia, unspecified; D69.6 Thrombocytopenia, unspecified; R26.81 Unsteadiness on feet; G25.81 Restless legs syndrome; Z98.1 Arthrodesis status; Z79.890 Hormone replacement therapy; Z79.4 Long term (current) use of insulin; Z79.899 Other long term (current) drug therapy; Z79.52 Long term (current) use of systemic steroids; Z79.82 Long term (current) use of aspirin; X58.XXXA Exposure to other specified factors, initial encounter; Z91.048 Other nonmedicinal substance allergy status; Z87.891 Personal history of nicotine dependence
CPT/HCPCS: 97530 ×2; 97163; 86900; 86901; 80048; 85025 ×2; 86850; 83036; 73600; 20680; 27822; J1170; J1100; J2405; J0690 ×4; J1650 ×3